=== PATIENT | female | born 1980 | race Caucasian/White ===

== ENCOUNTER 2017-06-06 18:23 | Inpatient (IN) | payer BC, MEDICAID ==
[2017-06-06] MEDS ORDERED: Penicillin G Potassium 5 MILLUNITS in Sodium Chloride 0.9% 100 ML IV ONE (19:00)
[2017-06-06] MEDS ORDERED: Lactated Ringers 500 ML IV ONE (19:25)
[2017-06-06] MEDS ORDERED: Lidocaine 1% 30 ML SDV INJECT PRN (19:25)
[2017-06-06] MEDS ORDERED: Ondansetron 4 MG/2 ML SDV IV PRN (19:25)
[2017-06-06] MEDS ORDERED: fentaNYL 100 MCG/2 ML SDV IVPUSH PRN (19:25)
[2017-06-06] MEDS ORDERED: Methylergonovine 0.2 MG/1 ML Amp IM PRN (19:25)
[2017-06-06] MEDS ORDERED: Misoprostol 400 MCG (4 X 100 MCG TAB) RECTAL PRN (19:25)
[2017-06-06] MEDS ORDERED: Nalbuphine 20 MG/1 ML Amp IVPUSH PRN (19:25)
[2017-06-06] MEDS ORDERED: Acetaminophen 325 MG Tab PO PRN (19:25)
[2017-06-06] MEDS ORDERED: Sodium Chloride 0.9% 10 ML Syringe FLUSH PRN (19:25)
[2017-06-06] MEDS ORDERED: Carboprost Tromethamine 250 MCG/1 ML Amp IM PRN (19:25)
[2017-06-06] MEDS ORDERED: Oxytocin/Normal Saline 30 UNIT/500 ML BAG IV SCH (19:30)
--- NOTE | 2017-06-06 19:38 | PCM.LDHP ---
L&D History of Present Illness - General Date of Service: 06/06/17 Admit Problem/Dx: Patient Status Order with Admit Dx/Problem 06/06/17 19:25 Patient Status [ADT] Routine Admission Diagnosis/Problem Admission Diagnosis/Problem Source of Information: Patient History Limitations: Reports: No Limitations - History of Present Illness Introduction:: 36-year-old at 37w6d presents with gross rupture of membranes at 1630. She states the fluid appeared clear. No bleeding. Baby has been active. She is not feeling any contractions. Her last delivery took approximately 4 hours. She does have chronic hypertension which is being treated with Aldomet 500 mg BID and labetalol 100 mg daily. She is also hypothyroid and taking levothyroxine 100 mcg daily. - Related Data Allergies/Adverse Reactions: Allergies Allergy/AdvReac Type Severity Reaction Status Date / Time latex Allergy Itching Verified 06/06/17 19:00 Home Medications: Home Meds Labetalol HCl [Labetalol] 100 mg PO DAILY 11/05/15 [History] Levothyroxine [Synthroid] 100 mcg PO ACBREAKFAST 11/05/15 [History] Methyldopa 500 mg PO BID 11/05/15 [History] Pnv with Ca,No.72/Iron/Fa [ Plus Multivitamin Tab] 1 tab PO DAILY [History] Past Medical History HEENT History: Reports: None Cardiovascular History: Reports: Hypertension, Other (See Below) Other Cardiovascular History: gestational and chronic Respiratory History: Reports: Asthma Gastrointestinal History: Reports: GERD Genitourinary History: Reports: None 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: Musculoskeletal History: Reports: None Neurological History: Reports: None Psychiatric History: Reports: Anxiety, Depression Endocrine/Metabolic History: Reports: Hypothyroidism Hematologic History: Reports: None Immunologic History: Reports: None Oncologic (Cancer) History: Reports: None Dermatologic History: Reports: None - Infectious Disease History Infectious Disease History: Reports: None - Past Surgical History Head Surgeries/Procedures: Reports: None Social & Family History - Family History Family Medical History: Noncontributory - Tobacco Use Smoking Status *Q: Never Smoker Second Hand Smoke Exposure: No - Caffeine Use Caffeine Use: Reports: Soda - Recreational Drug Use Recreational Drug Use: No H&P Review of Systems - Review of Systems: Review Of Systems: See Below General: Reports: No Symptoms HEENT: Reports: No Symptoms Pulmonary: Reports: No Symptoms Cardiovascular: Reports: No Symptoms Gastrointestinal: Reports: No Symptoms Genitourinary: Reports: No Symptoms Musculoskeletal: Reports: No Symptoms Skin: Reports: No Symptoms Psychiatric: Reports: No Symptoms Neurological: Reports: No Symptoms Hematologic/Lymphatic: Reports: No Symptoms L&D Exam - Exam Exam: See Below - Vital Signs Weight: 134.717 kg - OB Specific Contraction Duration (sec): 20 Contraction Frequency (min): 7-10 Contraction Intensity: Mild Movement: Active Heart Tones: Present Heart Tones per Min: 135 Heart Rate (FHR) Variability: Absent; Amplitude Undetectable Presentation: Vertex - Villarreal Score Villarreal Score Cervix Position: Posterior Villarreal Score Consistency: Soft Villarreal Score Effacement: 51-70% Villarreal Score Dilation: 1-2 cm Villarreal Score 's Station: -3 Villarreal Score Total: 5 - Exam General: Alert, Oriented HEENT: Conjunctiva Clear, Mucosa Moist & [place] Lungs: Clear to Auscultation, Normal Respiratory Effort Cardiovascular: Regular Rate, Regular Rhythm. No: Systolic Murmur, Diastolic Murmur Extremities: Pedal Edema (Trace bilaterally) Skin: Warm, Dry, Intact - Patient Data Lab Results Last 24 hrs: Laboratory Results - last 24 hr 06/06/17 Range/Units 18:48 WBC 10.3 H (5.0-10.0) 10^3/uL RBC 4.17 L (4.2-5.4) 10^6/uL Hgb 12.1 D (12.0-16.0) g/dL Hct 36.9 L (37.0-47.0) % MCV 88.5 (80-100) fL MCH 29.0 (27.0-34.0) pg MCHC 32.8 L (33.0-35.0) g/dL Plt Count 252 (150-450) 10^3/uL Result Diagrams: 06/06/17 18:48 - Problem List (1) SROM (spontaneous rupture of membranes) SNOMED Code(s): 069417789 ICD Code: FNS9187 - Status: Acute Current Visit: Yes (2) Chronic hypertension SNOMED Code(s): 80955255 ICD Code: I10 - ESSENTIAL (PRIMARY) HYPERTENSION Status: Acute Current Visit: Yes (3) Hypothyroid SNOMED Code(s): 47698276 ICD Code: E03.9 - HYPOTHYROIDISM, UNSPECIFIED Status: Acute Current Visit : Yes (4) Positive GBS test SNOMED Code(s): 1989754738994 ICD Code: B95.1 - STREPTOCOCCUS, GROUP B, CAUSING DISEASES CLASSD ELSWHR Status: Acute Current Visit: Yes (5) Anemia affecting SNOMED Code(s): 13153039 ICD Code: O99.019 - ANEMIA COMPLICATING , UNSPECIFIED TRIMESTER Status: Acute Current Visit: Yes Problem List Initiated/Reviewed/Updated: Yes Orders Last 24hrs: Active Orders 24 hr Category Date Time Status Patient Status [ADT] Routine ADT 06/06/17 19:25 Ordered Communication Order [RC] ASDIRECTED Care 06/06/17 19:25 Ordered Heart Tones [RC] PER UNIT ROUTINE Care 06/06/17 19:25 Ordered Notify Provider Vital Signs OB [RC] ASDIRECTED Care 06/06/17 19:25 Ordered Notify Provider [RC] PRN Care 06/06/17 19:25 Ordered Pump Management, Intrathecal [RC] ASDIRECTED Care 06/06/17 19:25 Ordered Up ad Nikki [RC] ASDIRECTED Care 06/06/17 19:25 Ordered Vital Signs [RC] PER UNIT ROUTINE Care 06/06/17 19:25 Ordered Clear Liquid Diet [DIET] Diet 06/06/17 Breakfast Ordered Acetaminophen [Tylenol] Med 06/06/17 19:25 Ordered 650 mg PO Q4H PRN Carboprost Tromethamine [Hemabate DS] Med 06/06/17 19:25 Ordered 250 mcg IM ASDIRECTED PRN Lactated Ringers @ 125 MLS/HR(1000ml) Med 06/06/17 19:30 Ordered Lactated Ringers [Ringers, Lactated] 1,000 ml IV ASDIRECTED Lactated Ringers [Ringers, Lactated] 500 ml Med 06/06/17 19:25 Ordered IV .BOLUS Lidocaine 1% [Xylocaine-MPF 1%] Med 06/06/17 19:25 Ordered 10 ml INJECT ASDIRECTED PRN Methylergonovine [Methergine] Med 06/06/17 19:25 Ordered 0.2 mg IM ASDIRECTED PRN Misoprostol [Cytotec] Med 06/06/17 19:25 Ordered 800 mcg RECTAL ASDIRECTED PRN Nalbuphine [Nubain] Med 06/06/17 19:25 Ordered 10 mg IVPUSH Q3H PRN Ondansetron [Zofran] Med 06/06/17 19:25 Ordered 4 mg IV Q4H PRN Oxytocin 30 Units in NS @ 2 MUNITS/MIN(500ml) Med 06/06/17 19:30 Ordered Oxytocin/Normal Saline [Pitocin in NS 30 UNIT/500 ML] 30 unit in 500 ml IV TITRATE Penicillin G Potassium [Pfizerpen] 2.5 millunits Med 06/06/17 19:30 Ordered Sodium Chloride 0.9% [Normal Saline] 100 ml IV Q4H Sodium Chloride 0.9% [Saline Flush] Med 06/06/17 19:25 Ordered 10 ml FLUSH ASDIRECTED PRN fentaNYL [Sublimaze] Med 06/06/17 19:25 Ordered 50 mcg IVPUSH Q1H PRN Saline Lock Insert [OM.PC] Routine Oth 06/06/17 19:25 Ordered Resuscitation Status Routine Resus Stat 06/06/17 19:25 Ordered Medication Orders Acetaminophen (Tylenol) 650 mg PO Q4H PRN PRN Reason: Pain (Mild 1-3) and fever Carboprost Tromethamine (Hemabate Ds) 250 mcg IM ASDIRECTED PRN PRN Reason: HEMORRHAGE Fentanyl (Sublimaze) 50 mcg IVPUSH Q1H PRN PRN Reason: Pain (moderate 4-6) Lactated Ringer's (Ringers, Lactated) 500 mls @ 999 mls/hr IV .BOLUS ONE Stop: 06/06/17 19:55 Lactated Ringer's (Ringers, Lactated) 1,000 mls @ 125 mls/hr IV ASDIRECTED MEGAN Oxytocin/Sodium Chloride (Pitocin In Ns 30 Unit/500 Ml) 30 unit in 500 mls @ 2 mls/hr IV TITRATE MEGAN; 2 MUNITS/MIN PRN Reason: Protocol Penicillin G Potassium 2.5 (millunits/ Sodium Chloride) 100 mls @ 200 mls/hr IV Q4H MEGAN Lidocaine HCl (Xylocaine-Mpf 1%) 10 ml INJECT ASDIRECTED PRN PRN Reason: Perineal Repair Methylergonovine Maleate (Methergine) 0.2 mg IM ASDIRECTED PRN PRN Reason: Hemorrhage Misoprostol (Cytotec) 800 mcg RECTAL ASDIRECTED PRN PRN Reason: Hemorrhage Nalbuphine HCl (Nubain) 10 mg IVPUSH Q3H PRN PRN Reason: Pain (moderate 4-6) Ondansetron HCl (Zofran) 4 mg IV Q4H PRN PRN Reason: Nausea/Vomiting Sodium Chloride (Saline Flush) 10 ml FLUSH ASDIRECTED PRN PRN Reason: Keep Vein Open Assessment/Plan Comment:: 36-year-old at 37w6d with SROM 1. Admit to L&D 2. Initiate PCN for GBS+ status 3. Given history of rapid delivery, will wait until 2 hours after PCN then start pitocin 4. Continue home medications for hypertension and hypothyroidism 5. Patient does desire intrathecal 6. Expectant management. Anticipate Aurelia Bass MD
[2017-06-06] MEDS: Penicillin G Potassium 2.5 MILLUNITS in Sodium Chloride 0.9% 100 ML IV SCH (23:21)
[2017-06-07] MEDS: Lactated Ringers 1,000 ML IV SCH ×3 (00:01→04:58)
[2017-06-07] MEDS: Penicillin G Potassium 2.5 MILLUNITS in Sodium Chloride 0.9% 100 ML IV SCH ×2 (02:41→08:09)
[2017-06-07] MEDS ORDERED: Labetalol 20 MG/4 ML Syringe IVPUSH ONE (02:55)
[2017-06-07] MEDS ORDERED: fentaNYL 100 MCG/2 ML SDV ONE (04:28)
--- NOTE | 2017-06-07 05:21 | PCM.PRNOTE ---
- Free Text/Narrative Note: Requested to provide analgesia to full term patient in severe pain. Upon entering the room, patient is lying on right side complaining of severe abdominal pain and discomfort. Procedure was discussed with patient including adverse outcomes and expectations. Pt consented to analgesia, SAB/IT. Pt placed into a sitting position. Landmarks for SAB/IT were identified and marked. Back was prepped with betadine x3. A sterile, transparent, fenestrated drape was applied. Excess betadine was removed. Using 3 mL of a 1% lidocaine solution, a skin wheel was placed at the L3/L4 interspace. A 24 ga (4 inch) Pencan spinal needle was inserted until positive for CSF. Negative for heme or paresthesias. Injected fentanyl 20 mcg, sufentanil 10 mcg, and 11.25 mg of a 0.75% bupivacaine solution with an epi wash. Pt was placed left lateral position for approximately 20 minutes. There were zero complications or adverse outcomes. Will continue to monitor.
[2017-06-07] MEDS ORDERED: Oxytocin/Normal Saline 30 UNIT/500 ML BAG IV SCH (06:20)
[2017-06-07] MEDS ORDERED: Benzocaine/Menthol 20%-0.5% Spray 56 GM Canister TOP PRN (06:45)
[2017-06-07] MEDS ORDERED: Oxytocin 10 Units/1 ML SDV IM PRN (06:45)
[2017-06-07] MEDS ORDERED: Simethicone 80 MG Tab.Chew PO PRN (06:45)
[2017-06-07] MEDS ORDERED: Sodium Chloride 0.9% 10 ML Syringe FLUSH PRN (06:45)
--- NOTE | 2017-06-07 06:47 | PCM.DEL ---
L & D Note - General Info Date of Service: 06/07/17 Mother's Due Date: 06/21/17 - Delivery Note Labor: Spontaneous, Augmented by Oxytocin Delivery Outcome: Livebirth Infant Delivery Method: Spontaneous Vaginal Delivery-Single Infant Delivery Mode: Vacuum Extraction Presentation: Vertex Nuchal Cord: Present, Reduced (after delivery) Anesthesia Type: Intrathecal Amniotic Fluid Description: Clear Episiotomy Type: None Laceration: 2nd Degree, Vaginal Suture type: Vicryl Suture size: 3-0 Placenta: Intact, Spontaneous Estimated Blood Loss: 175 Resuscitation Needed: Yes [place]: Bulb Syringe, Stimulated, Warmed, [place] Used, Warmer Used Score 1 min: 8 Score 5 min: 9 Delivery Comments (Free Text/Narrative):: 36-year-old now presented to L&D with SROM at 37w6d on 06/06/17. Patient was noted to be grossly ruptured. Penicillin was started for GBS positive status. Due to several patients arriving to the floor the same time, Pitocin was started approximately 2200. Patient progressed well with the use of Pitocin. She received an intrathecal around 4:30 AM. Patient progressed to complete dilation at approximately 6 AM. Starting at 5:30 AM, heart tones were noted to be intermittently and the 60s to 90s. These did recover. Patient did push for 1 contraction and moved to the head and to +2 station. heart tones were noted to be persistently in the 80s. Therefore a soft couple mighty Vac was applied to the head. Patient pushed well 5 times in the head was delivered. The vacuum was removed and the remainder of the body was delivered. A tight nuchal cord was noted and was reduced after delivery of . The mouth and nose were suctioned at the perineum as patient did have some significant gurgling. He was taken to the warmer for a few minutes for resuscitation. The placenta delivered at few minutes later and was noted to be intact. Patient did have a small second-degree vaginal laceration that was repaired in the usual fashion. Afterwards, hemostasis was noted to be appropriate. The uterus was firm. There were no immediate complications, and the patient tolerated the procedure well. Aurelia Bass MD Vacuum Extractor Progress Note - Alternative Labor Strategies Considered Alternative Labor Strategies Considered:: Reports: Yes Strategies Considered:: Reports: Contraction Intensity Adequate, Empty Bladder, Rest Indications Considered:: Reports: Yes Indications:: Reports: Suspicion of Immediate or Potential Compromise - Patient Prepared Patient Prepared:: Reports: Yes Informed Consent:: Reports: Yes Risks: Reports: Yes Risks Include:: Reports: Shoulder Dystocia, Maternal Injury Anesthesia/Analgesia Adequate:: Reports: Yes - Probability of Success High Probability of Success:: Reports: Yes Weight Estimated:: Reports: AGA Patient Diabetic:: Reports: No Pelvis Adequate:: Reports: Yes Position:: Vertex Asynclitic:: Reports: No Station:: 2+ - Application Time Type of Vacuum Used:: Reports: Cup: Duque type Vacuum Extraction: Successful - Exit Strategy Exit strategy available:: Reports: Yes - Patient Data Vitals - Most Recent: Last Vital Signs Temp 36.6 C 06/07/17 00:00 Pulse 51 L 06/07/17 03:30 Resp 16 06/06/17 18:53 BP 160/86 H 06/07/17 03:30 Pulse Ox Weight - Most Recent: 134.717 kg Lab Results Last 24 Hours: Laboratory Results - last 24 hr 06/06/17 06/07/17 06/07/17 Range/Units 18:48 03:00 03:00 WBC 10.3 H 10.4 H (5.0-10.0) 10^3/uL RBC 4.17 L 3.98 L (4.2-5.4) 10^6/uL Hgb 12.1 D 11.5 L (12.0-16.0) g/dL Hct 36.9 L 35.5 L (37.0-47.0) % MCV 88.5 89.2 (80-100) fL MCH 29.0 28.9 (27.0-34.0) pg MCHC 32.8 L 32.4 L (33.0-35.0) g/dL Plt Count 252 235 (150-450) 10^3/uL Neut % (Auto) 73.8 (42.2-75.2) % Lymph % (Auto) 17.6 L (20.5-50.1) % [place] % (Auto) 6.8 (2-8) % Eos % (Auto) 1.6 (1.0-3.0) % Baso % (Auto) 0.2 (0.0-1.0) % BUN 9 (7-18) mg/dL Uric Acid 4.5 (2.6-7.2) mg/dL AST 19 (10-42) IU/L ALT 12 (10-60) IU/L Lactate Dehydrogenase 112 (91-180) IU/L Med Orders - Current: Current Medications Acetaminophen (Tylenol) 650 mg PO Q4H PRN PRN Reason: Pain (Mild 1-3) and fever Carboprost Tromethamine (Hemabate Ds) 250 mcg IM ASDIRECTED PRN PRN Reason: HEMORRHAGE Penicillin G Potassium 2.5 (millunits/ Sodium Chloride) 100 mls @ 200 mls/hr IV Q4H MEGAN Last Admin: 06/07/17 02:41 Dose: 200 mls/hr Methylergonovine Maleate (Methergine) 0.2 mg IM ASDIRECTED PRN PRN Reason: Hemorrhage Misoprostol (Cytotec) 800 mcg RECTAL ASDIRECTED PRN PRN Reason: Hemorrhage Sodium Chloride (Saline Flush) 10 ml FLUSH ASDIRECTED PRN PRN Reason: Keep Vein Open Discontinued Medications Fentanyl (Sublimaze) 50 mcg IVPUSH Q1H PRN PRN Reason: Pain (moderate 4-6) Fentanyl (Sublimaze) Confirm Administered Dose 100 mcg .ROUTE .STK-MED ONE Stop: 06/07/17 04:29 Last Admin: 06/07/17 05:34 Dose: Not Given Penicillin G Potassium 5 (millunits/ Sodium Chloride) 100 mls @ 200 mls/hr IV ONETIME ONE Stop: 06/06/17 19:29 Last Admin: 06/06/17 19:34 Dose: 200 mls/hr Lactated Ringer's (Ringers, Lactated) 500 mls @ 999 mls/hr IV .BOLUS ONE Stop: 06/06/17 19:55 Last Admin: 06/06/17 19:33 Dose: 999 mls/hr Lactated Ringer's (Ringers, Lactated) 1,000 mls @ 125 mls/hr IV ASDIRECTED MEGAN Last Admin: 06/07/17 04:58 Dose: 125 mls/hr Oxytocin/Sodium Chloride (Pitocin In Ns 30 Unit/500 Ml) 30 unit in 500 mls @ 2 mls/hr IV TITRATE MEGAN; 2 MUNITS/MIN PRN Reason: Protocol Last Titration: 06/07/17 03:15 Dose: 10 munits/min, 10 mls/hr Labetalol HCl (Normodyne) 20 mg IVPUSH NOW ONE PRN Reason: Protocol Stop: 06/07/17 02:56 Last Admin: 06/07/17 03:17 Dose: 20 mg Lidocaine HCl (Xylocaine-Mpf 1%) 10 ml INJECT ASDIRECTED PRN PRN Reason: Perineal Repair Nalbuphine HCl (Nubain) 10 mg IVPUSH Q3H PRN PRN Reason: Pain (moderate 4-6) Last Admin: 06/07/17 02:26 Dose: 10 mg Ondansetron HCl (Zofran) 4 mg IV Q4H PRN PRN Reason: Nausea/Vomiting Last Admin: 06/07/17 04:14 Dose: 4 mg Sufentanil Citrate (Sufenta) Confirm Administered Dose 50 mcg .ROUTE .STK-MED ONE Stop: 06/07/17 04:29 Last Admin: 06/07/17 05:34 Dose: Not Given - Problem List & Annotations (1) SROM (spontaneous rupture of membranes) SNOMED Code(s): 196612080 Code(s): HQY7488 - Status: Acute Current Visit: Yes (2) Chronic hypertension SNOMED Code(s): 20080435 Code(s): I10 - ESSENTIAL (PRIMARY) HYPERTENSION Status: Acute Current Visit: Yes (3) Hypothyroid SNOMED Code(s): 95800946 Code(s): E03.9 - HYPOTHYROIDISM, UNSPECIFIED Status: Acute Current Visit : Yes (4) Positive GBS test SNOMED Code(s): 4738271287414 Code(s): B95.1 - STREPTOCOCCUS, GROUP B, CAUSING DISEASES CLASSD ELSR Status: Acute Current Visit: Yes (5) Anemia affecting SNOMED Code(s): 13373639 Code(s): O99.019 - ANEMIA COMPLICATING , UNSPECIFIED TRIMESTER Status: Acute Current Visit: Yes (6) Status post vacuum-assisted vaginal delivery SNOMED Code(s): 325462794 Code(s): Z87.42 - PERSONAL HISTORY OF OTH DISEASES OF THE FEMALE GENITAL TRACT Status: Acute Current Visit: Yes (7) Obstetric vaginal laceration SNOMED Code(s): 235769074 Code(s): O71.4 - OBSTETRIC HIGH VAGINAL LACERATION ALONE Status: Acute Current Visit: Yes - Problem List Review Problem List Initiated/Reviewed/Updated: Yes - My Orders Last 24 Hours: My Active Orders 06/06/17 18:30 Amniotic Fluid POC Testing [POC Labs] [RC] ASDIRECTED 06/06/17 19:25 Patient Status [ADT] Routine Pump Management, Intrathecal [RC] ASDIRECTED Acetaminophen [Tylenol] 650 mg PO Q4H PRN Carboprost Tromethamine [Hemabate DS] 250 mcg IM ASDIRECTED PRN Methylergonovine [Methergine] 0.2 mg IM ASDIRECTED PRN Misoprostol [Cytotec] 800 mcg RECTAL ASDIRECTED PRN Sodium Chloride 0.9% [Saline Flush] 10 ml FLUSH ASDIRECTED PRN Saline Lock Insert [OM.PC] Routine Resuscitation Status Routine 06/06/17 22:00 Penicillin G Potassium [Pfizerpen] 2.5 millunits Sodium Chloride 0.9% [Normal Saline] 100 ml IV Q4H 06/07/17 02:55 PIH Panel [OM.PC] Routine 06/07/17 06:45 Notify Provider Vital Signs OB [RC] ASDIRECTED Up ad Nikki [RC] ASDIRECTED Vital Signs [RC] PFP Consult to College Sports Coach [CONS] Routine Benzocaine/Menthol [Dermoplast Pain Relief [place]] See Dose Instructions TOP Q4H PRN Docusate Sodium [Colace] 100 mg PO BID PRN Ibuprofen [Motrin] 800 mg PO Q8H PRN Oxytocin [Pitocin] 10 unit IM ONETIME PRN Simethicone 80 mg PO Q4H PRN Sodium Chloride 0.9% [Saline Flush] 10 ml FLUSH ASDIRECTED PRN Assess Lochia [WOMSER] Per Unit Routine Assess Uterine Involution [WOMSER] Per Unit Routine Breast Pump [WOMSER] Per Unit Routine Ice Therapy [OM.PC] Per Unit Routine Perineal Care [OM.PC] Per Unit Routine Saline Lock Insert [OM.PC] Urgent Sitz Bath [OM.PC] Per Unit Routine 06/07/17 09:00 Vit with Ca/FA/Iron [ Plus Iron] 1 each PO DAILY - Assessment Assessment:: 26-year-old, now , status post vacuum-assisted vaginal delivery at 38w0d - Plan Plan:: 1. Initiate routine cares 2. Patient does plan to breastfeed. consultation placed 3. Continue home medications 4. Anticipate discharge 06/09/17. Dr. Mares to resume care tomorrow. Aurelia Bass MD
[2017-06-07] MEDS: Prenatal Multivitamin with Calcium/Folic Acid/Iron Tab PO SCH (08:56)
[2017-06-07] MEDS: Ibuprofen 800 MG Tab PO PRN ×2 (08:56→17:18)
[2017-06-07] MEDS: Docusate Sodium 100 MG Cap PO PRN (08:57)
[2017-06-08] MEDS: Ibuprofen 800 MG Tab PO PRN ×3 (01:01→21:31)
[2017-06-08] MEDS: Prenatal Multivitamin with Calcium/Folic Acid/Iron Tab PO SCH (09:18)
[2017-06-08] MEDS: Docusate Sodium 100 MG Cap PO PRN ×2 (09:18→21:31)
[2017-06-08] MEDS ORDERED: fentaNYL 100 MCG/2 ML SDV ITHECAL ONE (13:30)
--- NOTE | 2017-06-08 13:35 | PCM.SN ---
- Free Text/Narrative Note: DOS: 06-08-17 Progress note, PPD #1 Diann delivered 06-07-17 by VAVD, viable 7lb 15oz male infant without complications. APGARs 8 & 9 going well and search consultant has seen her already today. no significant cramping. flow decreasing. afebrile with stable VS. see graphics for details. no concerns. exam unremarkable. fundus firm, nontender will plan on discharge tomorrow 06-09-17. Please see nursing notes for further details. All questions answered for her today. [facility]
[2017-06-09] MEDS: Prenatal Multivitamin with Calcium/Folic Acid/Iron Tab PO SCH (08:53)
[2017-06-09] MEDS: Docusate Sodium 100 MG Cap PO PRN (08:54)
--- NOTE | 2017-06-09 11:04 | PCM.DCSUM1 ---
Discharge Summary - Hospital Course Free Text/Narrative:: 36yo WF G2 now P2 delivered 7lb 15oz male by VAVD per Dr. Bass @ 0620 06-07-17 APGARs 8 & 9 nursing dong well HTN hypothyroid +GBS HPI Initial Comments: see EPIC episode and admission H&P/Shelia Brief History: admitted with SROM, hx HTN, r/o pre-E--see admit H&P - Discharge Data Discharge Date: 06/09/17 Discharge Disposition: Home, Self-Care 01 Condition: Good - Discharge Diagnosis/Problem(s) (1) Mother currently breast-feeding SNOMED Code(s): 926519036 ICD Code: [id number] - Status: Acute Current Visit: Yes (2) Anemia affecting SNOMED Code(s): 06906939 ICD Code: O99.019 - ANEMIA COMPLICATING , UNSPECIFIED TRIMESTER Status: Acute Current Visit: Yes (3) Chronic hypertension SNOMED Code(s): 66902629 ICD Code: I10 - ESSENTIAL (PRIMARY) HYPERTENSION Status: Acute Current Visit: Yes (4) Hypothyroid SNOMED Code(s): 66732236 ICD Code: E03.9 - HYPOTHYROIDISM, UNSPECIFIED Status: Acute Current Visit : Yes (5) Obstetric vaginal laceration SNOMED Code(s): 529597007 ICD Code: O71.4 - OBSTETRIC HIGH VAGINAL LACERATION ALONE Status: Acute Current Visit: Yes (6) Positive GBS test SNOMED Code(s): 7240933412128 ICD Code: B95.1 - STREPTOCOCCUS, GROUP B, CAUSING DISEASES CLASSD [id number] Status: Acute Current Visit: Yes (7) SROM (spontaneous rupture of membranes) SNOMED Code(s): 274235740 ICD Code: WLQ0877 - Status: Acute Current Visit: Yes (8) Status post vacuum-assisted vaginal delivery SNOMED Code(s): 213779760 ICD Code: Z87.42 - PERSONAL HISTORY OF OTH DISEASES OF THE FEMALE GENITAL TRACT Status: Acute Current Visit: Yes (9) Vaginal delivery SNOMED Code(s): 995575797 ICD Code: O80 - ENCOUNTER FOR FULL-TERM UNCOMPLICATED DELIVERY Status: Acute Current Visit: No - Patient Summary/Data Operative Procedure(s) Performed: VAVD, vaginal laceration repeair Complications: none Consults: Consultations 06/07/17 06:45 Consult to Automatic I Threading Machine Feeder [CONS] Routine Labs Pending at D/C: none Recommended Follow-up Testing/Procedures: thyroid testing and glucose at 6 weeks Hospital Course: uneventful - Patient Instructions Diet: Usual Diet as Tolerated Activity: As Tolerated Driving: Do Not Drive (may drive as tolerated) Showering/Bathing: May Shower Notify Provider of: Fever, Increased Pain, Swelling and Redness - Discharge Plan Home Medications: Home Meds Labetalol HCl [Labetalol] 100 mg PO DAILY 11/05/15 [History] Levothyroxine [Synthroid] 100 mcg PO ACBREAKFAST 11/05/15 [History] Methyldopa 500 mg PO BID 11/05/15 [History] Pnv with Ca,No.72/Iron/Fa [ Plus Multivitamin Tab] 1 tab PO DAILY [History] Patient Handouts: Home Care Instructions for Mom, Care of a Perineal Tear - Discharge Summary/Plan Comment DC Time >30 min.: No Discharge Summary/Plan Comment: follow up at 6 weeks, and next week for BP check. hmb - Patient Data Vitals - Most Recent: Last Vital Signs Temp 97.8 F 06/08/17 20:00 Pulse 60 06/08/17 20:00 Resp 16 06/08/17 20:00 BP 139/66 06/08/17 20:00 Pulse Ox 98 06/08/17 09:00 Weight - Most Recent: 297 lb Med Orders - Current: Current Medications Acetaminophen (Tylenol) 650 mg PO Q4H PRN PRN Reason: Pain (Mild 1-3) and fever Benzocaine/Menthol (Dermoplast Pain Relief [place]) 0 gm TOP Q4H PRN PRN Reason: Perineal comfort measures Last Admin: 06/07/17 08:56 Dose: 1 spray Carboprost Tromethamine (Hemabate Ds) 250 mcg IM ASDIRECTED PRN PRN Reason: HEMORRHAGE Docusate Sodium (Colace) 100 mg PO BID PRN PRN Reason: Constipation Last Admin: 06/09/17 08:54 Dose: 100 mg Oxytocin/Sodium Chloride (Pitocin In Ns 30 Unit/500 Ml) 30 unit in 500 mls @ 500 mls/hr IV TITRATE MEGAN; 500 MUNITS/MIN PRN Reason: Protocol Last Titration: 06/07/17 09:45 Dose: 0 munits/min, 0 mls/hr Ibuprofen (Motrin) 800 mg PO Q8H PRN PRN Reason: Mild Pain or Fever Last Admin: 06/08/17 21:31 Dose: 800 mg Methylergonovine Maleate (Methergine) 0.2 mg IM ASDIRECTED PRN PRN Reason: Hemorrhage Misoprostol (Cytotec) 800 mcg RECTAL ASDIRECTED PRN PRN Reason: Hemorrhage Oxytocin (Pitocin) 10 unit IM ONETIME PRN PRN Reason: Bleeding Prenat Multivit/[place]/Iron/Folic Ac ( Plus Iron) 1 each PO DAILY MEGAN Last Admin: 06/09/17 08:53 Dose: 1 each Simethicone (Simethicone) 80 mg PO Q4H PRN PRN Reason: Gas Last Admin: 06/07/17 08:57 Dose: 80 mg Sodium Chloride (Saline Flush) 10 ml FLUSH ASDIRECTED PRN PRN Reason: Keep Vein Open Sodium Chloride (Saline Flush) 10 ml FLUSH ASDIRECTED PRN PRN Reason: Keep Vein Open Last Admin: 06/07/17 06:25 Dose: 10 ml Discontinued Medications Fentanyl (Sublimaze) 50 mcg IVPUSH Q1H PRN PRN Reason: Pain (moderate 4-6) Fentanyl (Sublimaze) Confirm Administered Dose 100 mcg .ROUTE .STK-MED ONE Stop: 06/07/17 04:29 Last Admin: 06/07/17 05:34 Dose: Not Given Fentanyl (Sublimaze) 20 mcg ITHECAL .STK-MED ONE Stop: 06/08/17 13:31 Penicillin G Potassium 5 (millunits/ Sodium Chloride) 100 mls @ 200 mls/hr IV ONETIME ONE Stop: 06/06/17 19:29 Last Admin: 06/06/17 19:34 Dose: 200 mls/hr Lactated Ringer's (Ringers, Lactated) 500 mls @ 999 mls/hr IV .BOLUS ONE Stop: 06/06/17 19:55 Last Admin: 06/06/17 19:33 Dose: 999 mls/hr Lactated Ringer's (Ringers, Lactated) 1,000 mls @ 125 mls/hr IV ASDIRECTED MEGAN Last Admin: 06/07/17 04:58 Dose: 125 mls/hr Oxytocin/Sodium Chloride (Pitocin In Ns 30 Unit/500 Ml) 30 unit in 500 mls @ 2 mls/hr IV TITRATE MEGAN; 2 MUNITS/MIN PRN Reason: Protocol Last Titration: 06/07/17 06:20 Dose: 0 munits/min, 0 mls/hr Penicillin G Potassium 2.5 (millunits/ Sodium Chloride) 100 mls @ 200 mls/hr IV Q4H MEGAN Last Admin: 06/07/17 08:09 Dose: Not Given Labetalol HCl (Normodyne) 20 mg IVPUSH NOW ONE PRN Reason: Protocol Stop: 06/07/17 02:56 Last Admin: 06/07/17 03:17 Dose: 20 mg Lidocaine HCl (Xylocaine-Mpf 1%) 10 ml INJECT ASDIRECTED PRN PRN Reason: Perineal Repair Nalbuphine HCl (Nubain) 10 mg IVPUSH Q3H PRN PRN Reason: Pain (moderate 4-6) Last Admin: 06/07/17 02:26 Dose: 10 mg Ondansetron HCl (Zofran) 4 mg IV Q4H PRN PRN Reason: Nausea/Vomiting Last Admin: 06/07/17 04:14 Dose: 4 mg Sufentanil Citrate (Sufenta) Confirm Administered Dose 50 mcg .ROUTE .STK-MED ONE Stop: 06/07/17 04:29 Last Admin: 06/07/17 05:34 Dose: Not Given Sufentanil Citrate (Sufenta) 10 mcg ITHECAL .STK-MED ONE Stop: 06/08/17 13:31 *Q Meaningful Use (DIS) - VTE *Q VTE Criteria *Q: - Stroke *Q Stroke Criteria *Q: - AMI *Q AMI Criteria *Q:
[2017-06-09 13:58] VITALS: BP 150/81
== END 2017-06-09 12:30 | disposition home or self-care (01) | DRG 560 ==
LOC: DL.OBCHECK 18:23 → DL.OB 18:35 → OBSVTOIN 06-07 06:20
PROVIDERS: ADMIT Family Medicine; ATTEND Family Medicine
PROC: 10D07Z6 Extraction of Products of Conception, Vacuum, Via Natural or Artificial Opening (ICD-10-PCS; principal; 2017-06-07)
PROC: 0KQM0ZZ Repair Perineum Muscle, Open Approach (ICD-10-PCS; 2017-06-07)
PROC: 00HU33Z Insertion of Infusion Device into Spinal Canal, Percutaneous Approach (ICD-10-PCS; 2017-06-07)
PROC: 3E0R3BZ Introduction of Anesthetic Agent into Spinal Canal, Percutaneous Approach (ICD-10-PCS; 2017-06-07)
DX: O42.02 Full-term premature rupture of membranes, onset of labor within 24 hours of rupture (principal); Z3A.38 38 weeks gestation of pregnancy; Z37.0 Single live birth; O10.92 Unspecified pre-existing hypertension complicating childbirth; Z91.040 Latex allergy status; O99.284 Endocrine, nutritional and metabolic diseases complicating childbirth; E03.9 Hypothyroidism, unspecified; O71.4 Obstetric high vaginal laceration alone; O69.81X0 Labor and delivery complicated by cord around neck, without compression, not applicable or unspecified; O99.02 Anemia complicating childbirth; O99.824 Streptococcus B carrier state complicating childbirth
CPT/HCPCS: 36415; 59300; 59409; 83615; 83986; 84450; 84460; 84520; 84550; 85025; 85027; A9270-GY; J2300; J2405; J2540; J2590; J3010; J7050; J7120

== ENCOUNTER 2018-09-21 20:26 | Emergency (ER) | payer BC ==
[2018-09-21 21:23] VITALS: BP 156/93
[2018-09-21 21:43] LABS: ANION GAP 15.3; CHLORIDE,CL 101 mmol/L (101-111); SODIUM,NA 136 mmol/L (135-145)
--- NOTE | 2018-09-21 23:06 | EDM.PDOC ---
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 9 weeks . Previous US in clinic,with intrauterine At time of US no problems reported. Light spotting yesterday, heavier flow tonight with few clots. Has not noted passage of tissue or product. Last pad change 2 hours prior with moderate bright red blood, no clots. No fever or chills, Flow heavier when standing up from sitting for period. Pelvic Pain Score (Numeric/FACES): 6 - Related Data Allergies Allergy/AdvReac Type Severity Reaction Status Date / Time latex Allergy Itching Verified 09/21/18 21:08 Home Meds: Home Meds Labetalol HCl [Labetalol] 100 mg PO DAILY 11/05/15 [History] Levothyroxine [Synthroid] 100 mcg PO ACBREAKFAST 11/05/15 [History] Pnv with Ca,No.72/Iron/Fa [ Plus Multivitamin Tab] 1 tab PO DAILY [History] Past Medical History HEENT History: Reports: None Cardiovascular History: Reports: Hypertension, Other (See Below) Other Cardiovascular History: gestational and chronic Respiratory History: Reports: Asthma Gastrointestinal History: Reports: GERD Genitourinary History: Reports: None 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: , 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 (See Below) Other MACHINE TECHNICIAN History: LEEP procedure Musculoskeletal History: Reports: None Neurological History: Reports: None Psychiatric History: Reports: Anxiety, Depression Endocrine/Metabolic History: Reports: Hypothyroidism Hematologic History: Reports: None Immunologic History: Reports: None Oncologic (Cancer) History: Reports: None Dermatologic History: Reports: None - Infectious Disease History Infectious Disease History: Reports: None - Past Surgical History Head Surgeries/Procedures: Reports: None HEENT Surgical History: Reports: Tonsillectomy Social & Family History - Family History Family Medical History: Noncontributory - Tobacco Use Smoking Status *Q: Never Smoker Second Hand Smoke Exposure: No - Caffeine Use Caffeine Use: Reports: Coffee, Soda - Recreational Drug Use Recreational Drug Use: No ED ROS GENERAL - Review of Systems Review Of Systems: ROS reveals no pertinent complaints other than HPI. ED EXAM - Physical Exam Exam: See Below Exam Limited By: No Limitations General Appearance: Alert, Anxious, Mild Distress Eye Exam: Bilateral Eye: EOMI Ears: Normal External Exam Nose: Normal Inspection Throat/Mouth: Normal Inspection, Normal Voice Head: Atraumatic, Normocephalic Neck: Normal Inspection Respiratory/Chest: No Respiratory Distress, Lungs Clear Cardiovascular: Regular Rate, Rhythm GI/Abdominal Exam: Normal Bowel Sounds, Soft, Tender (mild suprapubic) (Female) Exam: Normal External Exam, Vaginal Bleeding. No: Products of Conception, Tissue Present in Cervix/Vagina Back Exam: Full Range of Motion Extremities: Normal Range of Motion Neurological: Alert, Oriented, Normal Cognition Psychiatric: Anxious, Tearful Skin Exam: Warm, Dry, Intact, Normal Color Course - Vital Signs Last Recorded V/S: Last Vital Signs Temp 98.1 F 09/21/18 21:10 Pulse 85 09/21/18 21:10 Resp 18 09/21/18 21:10 BP 156/93 H 09/21/18 21:10 Pulse Ox 98 09/21/18 21:10 - Orders/Labs/Meds Labs: Laboratory Tests 09/21/18 09/21/18 09/21/18 Range/Units 21:00 21:20 21:20 WBC 9.3 (5.0-10.0) 10^3/uL RBC 5.01 (4.2-5.4) 10^6/uL Hgb 13.8 D (12.0-16.0) g/dL Hct 43.2 (37.0-47.0) % MCV 86.2 D (80-100) fL MCH 27.5 (27.0-34.0) pg MCHC 31.9 L (33.0-35.0) g/dL Plt Count 285 (150-450) 10^3/uL Sodium 136 (135-145) mmol/L Potassium 4.3 (3.6-5.0) mmol/L Chloride 101 (101-111) mmol/L Carbon Dioxide 24.0 (21.0-31.0) mmol/L Anion Gap 15.3 BUN 10 (7-18) mg/dL Creatinine 0.8 (0.6-1.3) mg/dL Est Cr Clr Drug Dosing 86.54 mL/min Estimated GFR (MDRD) > 60 BUN/Creatinine Ratio 12.50 Glucose 103 (74-105) mg/dL Calcium 9.4 (8.4-10.2) mg/dl Total Bilirubin 0.5 (0.2-1.0) mg/dL AST 22 (10-42) IU/L ALT 21 (10-60) IU/L Alkaline Phosphatase 64 (42-121) IU/L Total Protein 7.2 (6.7-8.2) g/dl Albumin 3.8 (3.2-5.5) g/dl Globulin 3.4 Albumin/Globulin Ratio 1.12 HCG, Qual Positive HCG, Quant (0-25) mIU/ml Beta HCG, Quant mIU/ml Urine Color (YELLOW) Urine Appearance (CLEAR) Urine pH (5.0-9.0) Ur Specific [place] (1.005-1.030) Urine Protein (NEGATIVE) Urine Glucose (UA) (NEGATIVE) Urine Ketones (NEGATIVE) Urine Occult Blood (NEGATIVE) Urine Nitrite (NEGATIVE) Urine Bilirubin (NEGATIVE) Urine Urobilinogen (0.2-1.0) mg/dL Ur Leukocyte Esterase (NEGATIVE) Urine RBC /HPF Urine WBC (0-5/HPF) /HPF Ur Epithelial Cells /HPF Urine Bacteria (0-FEW/HPF) /HPF Urine Opiates Screen Negative (NEGATIVE) Ur Oxycodone Screen Negative (NEGATIVE) Urine Methadone Screen Negative (NEGATIVE) Ur Barbiturates Screen Negative (NEGATIVE) U Tricyclic Antidepress Negative (NEGATIVE) Ur Phencyclidine Scrn Negative (NEGATIVE) Ur Amphetamine Screen Negative (NEGATIVE) U Methamphetamines Scrn Negative (NEGATIVE) Urine MDMA Screen Negative (NEGATIVE) U Benzodiazepines Scrn Negative (NEGATIVE) Urine Cocaine Screen Negative (NEGATIVE) U Marijuana (THC) Screen Negative (NEGATIVE) 09/21/18 09/21/18 Range/Units 21:20 21:20 WBC (5.0-10.0) 10^3/uL RBC (4.2-5.4) 10^6/uL Hgb (12.0-16.0) g/dL Hct (37.0-47.0) % MCV (80-100) fL MCH (27.0-34.0) pg MCHC (33.0-35.0) g/dL Plt Count (150-450) 10^3/uL Sodium (135-145) mmol/L Potassium (3.6-5.0) mmol/L Chloride (101-111) mmol/L Carbon Dioxide (21.0-31.0) mmol/L Anion Gap BUN (7-18) mg/dL Creatinine (0.6-1.3) mg/dL Est Cr Clr Drug Dosing mL/min Estimated GFR (MDRD) BUN/Creatinine Ratio Glucose (74-105) mg/dL Calcium (8.4-10.2) mg/dl Total Bilirubin (0.2-1.0) mg/dL AST (10-42) IU/L ALT (10-60) IU/L Alkaline Phosphatase (42-121) IU/L Total Protein (6.7-8.2) g/dl Albumin (3.2-5.5) g/dl Globulin Albumin/Globulin Ratio HCG, Qual HCG, Quant > 1321 H (0-25) mIU/ml Beta HCG, Quant 14142 mIU/ml Urine Color Red (YELLOW) Urine Appearance Cloudy (CLEAR) Urine pH 6.0 (5.0-9.0) Ur Specific [place] 1.020 (1.005-1.030) Urine Protein 100 H (NEGATIVE) Urine Glucose (UA) 100 H (NEGATIVE) Urine Ketones Negative (NEGATIVE) Urine Occult Blood Large H (NEGATIVE) Urine Nitrite Negative (NEGATIVE) Urine Bilirubin Negative (NEGATIVE) Urine Urobilinogen 0.2 (0.2-1.0) mg/dL Ur Leukocyte Esterase Trace H (NEGATIVE) Urine RBC Semi-packed H /HPF Urine WBC 5-10 H (0-5/HPF) /HPF Ur Epithelial Cells Few /HPF Urine Bacteria Moderate H (0-FEW/HPF) /HPF Urine Opiates Screen (NEGATIVE) Ur Oxycodone Screen (NEGATIVE) Urine Methadone Screen (NEGATIVE) Ur Barbiturates Screen (NEGATIVE) U Tricyclic Antidepress (NEGATIVE) Ur Phencyclidine Scrn (NEGATIVE) Ur Amphetamine Screen (NEGATIVE) U Methamphetamines Scrn (NEGATIVE) Urine MDMA Screen (NEGATIVE) U Benzodiazepines Scrn (NEGATIVE) Urine Cocaine Screen (NEGATIVE) U Marijuana (THC) Screen (NEGATIVE) - Re-Assessments/Exams Free Text/Narrative Re-Assessment/Exam: Findings discussed with patient, Amount of blood in vaginal vault miscarriage likely immanent. Instructed to follow up in clinic with PCP in am. Urgent follow up if increased bleeding saturating pad greater then 1/hour or experiencing dizziness. Patient tearful. Spouse supportive. Departure - Departure Time of Disposition: 23:03 Disposition: Home, Self-Care 01 Condition: Good Clinical Impression: Miscarriage - Discharge Information *PRESCRIPTION DRUG MONITORING PROGRAM REVIEWED*: Not Applicable *COPY OF PRESCRIPTION DRUG MONITORING REPORT IN PATIENT ZA: Not Applicable Instructions: Miscarriage, [id number] Referrals: Alta Mares MD [Primary Care Provider] - Forms: ED Department Discharge Additional Instructions: rest light activity urgent follow up saturation pad greater than one per hour, dizziness, clinic follow up tomorrow for recheck with Dr Webster tylenol 650mg every 4 hours as needed for discomfort
== END 2018-09-21 23:14 | disposition home or self-care (01) ==
LOC: DL.ED 20:26
DX: O03.9 Complete or unspecified spontaneous abortion without complication (principal); I10 Essential (primary) hypertension; Z3A.09 9 weeks gestation of pregnancy; Z79.899 Other long term (current) drug therapy; Z91.040 Latex allergy status
CPT/HCPCS: 36415; 80053; 80305-QW; 81001; 84702; 84703; 85027; 87086; 99284

== ENCOUNTER 2019-08-29 08:21 | Inpatient (IN) | payer MEDICAID ==
[~2019-08-29 08:21] MED LIST: Carboprost Tromethamine 250 MCG/1 ML Amp IM PRN; Lactated Ringers 1,000 ML IV SCH; Methylergonovine 0.2 MG/1 ML Amp IM PRN; Misoprostol 400 MCG (4 X 100 MCG TAB) RECTAL PRN; Ondansetron 4 MG/2 ML SDV IVPUSH PRN; Oxytocin/Normal Saline 30 UNIT/500 ML BAG IV SCH; Sodium Chloride 0.9% 10 ML Syringe FLUSH PRN; Tranexamic Acid 1,000 MG in Sodium Chloride 0.9% 100 ML IV PRN; fentaNYL 100 MCG/2 ML SDV IVPUSH PRN
[2019-08-29 09:00] LABS: ANION GAP 14.1; CHLORIDE,CL 105 mmol/L (101-111); SODIUM,NA 135 mmol/L (135-145)
[2019-08-29] MEDS: Misoprostol 50 MCG (1/2 of 100 MCG) Tab PO PRN ×2 (09:45→13:51)
--- NOTE | 2019-08-29 09:50 | PCM.LDHP ---
L&D History of Present Illness - General Date of Service: 08/29/19 (Admission H&P) Admit Problem/Dx: Patient Status Order with Admit Dx/Problem 08/29/19 00:17 Patient Status [ADT] Routine Admission Diagnosis/Problem Admission Diagnosis/Problem Gestational diabetes requiring insulin Induction for high risk chronic HTN, AMA, IDGDM, increased BMI 08/29/19 09:46 Source of Information: Patient, Family, Old Records, Provider, RN, Significant Other, Other ([facility] notes and episode) History Limitations: Reports: No Limitations - History of Present Illness Introduction:: Diann is a delightful 38yo high risk currently @ 38w3d here for induction as recommended by [facility]. Hx of AMA, chronic HTN controlled with labetalol 200mg BID throughout , IDGDM, BMI >50 has done well. weekly BPP have been reassuring. Timing/Duration: Reports: other (no contractions) Location, : Reports: Uterus - Related Data Allergies/Adverse Reactions: Allergies Allergy/AdvReac Type Severity Reaction Status Date / Time latex Allergy Itching Verified 08/29/19 10:30 Home Medications: Home Meds Labetalol HCl [Labetalol] 200 mg PO DAILY 11/05/15 [History] Levothyroxine [Synthroid] 150 mcg PO ACBREAKFAST 11/05/15 [History] Pnv with Ca,No.72/Iron/Fa [ Plus Multivitamin Tab] 1 tab PO DAILY [History] Insulin NPH Human Isophane [Humulin N] 20 units SQ BEDTIME 08/07/19 [History] Past Medical History HEENT History: Reports: None Cardiovascular History: Reports: Hypertension, Other (See Below) Other Cardiovascular History: gestational and chronic Respiratory History: Reports: Asthma Gastrointestinal History: Reports: GERD Genitourinary History: Reports: None ACUTE CARE CERTIFIED NURSING ASSISTANT History: Reports: , Other (See Below) 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: LEEP procedure Musculoskeletal History: Reports: None Neurological History: Reports: None Psychiatric History: Reports: Anxiety, Depression Endocrine/Metabolic History: Reports: Hypothyroidism Hematologic History: Reports: None Immunologic History: Reports: None Oncologic (Cancer) History: Reports: None Dermatologic History: Reports: None - Infectious Disease History Infectious Disease History: Reports: None - Past Surgical History Head Surgeries/Procedures: Reports: None HEENT Surgical History: Reports: Tonsillectomy Social & Family History - Family History Family Medical History: Noncontributory - Tobacco Use Smoking Status *Q: Never Smoker - Caffeine Use Caffeine Use: Reports: Coffee, Soda - Living Situation & Occupation Living situation: Reports: (lives with William and 2 children, daughter and son), with Family (Lives with and 2 children.) H&P Review of Systems - Review of Systems: Review Of Systems: Comprehensive ROS is negative, except as noted in HPI. L&D Exam - Exam Exam: See Below - Vital Signs Weight: 320 lb (145kg, BMI 53) - Villarreal Score Villarreal Score Cervix Position: Posterior Villarreal Score Consistency: Soft Villarreal Score Effacement: 0-30% Villarreal Score Dilation: 1-2 cm Villarreal Score 's Station: -3 Villarreal Score Total: 3 - Exam General: Alert, Oriented HEENT: Conjunctiva Clear, Hearing Intact, Pupils Equal, Pupils Reactive Lungs: Clear to Auscultation, Normal Respiratory Effort Cardiovascular: Regular Rate, Regular Rhythm Rectal Exam: Deferred Genitourinary: Normal external exam Back Exam: Normal Inspection Extremities: Normal Inspection Skin: Warm Psychiatric: Alert - Patient Data Lab Results Last 24 hrs: Laboratory Results - last 24 hr 08/29/19 08/29/19 Range/Units 08:33 08:33 WBC 8.4 (5.0-10.0) 10^3/uL RBC 4.52 (4.2-5.4) 10^6/uL Hgb 13.0 (12.0-16.0) g/dL Hct 39.5 (37.0-47.0) % MCV 87.4 (80-100) fL MCH 28.8 (27.0-34.0) pg MCHC 32.9 L (33.0-35.0) g/dL Plt Count 196 D (150-450) 10^3/uL Sodium 135 (135-145) mmol/L Potassium 4.1 (3.6-5.0) mmol/L Chloride 105 (101-111) mmol/L Carbon Dioxide 20.0 L (21.0-31.0) mmol/L Anion Gap 14.1 BUN 13 (7-18) mg/dL Creatinine 0.7 (0.6-1.3) mg/dL Est Cr Clr Drug Dosing TNP Estimated GFR (MDRD) > 60 Glucose 95 (74-105) mg/dL Uric Acid 5.3 (2.6-7.2) mg/dL Calcium 9.2 (8.4-10.2) mg/dl AST 18 (10-42) IU/L ALT 12 (10-60) IU/L Lactate Dehydrogenase 84 L (91-180) IU/L Result Diagrams: 08/29/19 08:33 08/29/19 08:33 - Problem List (1) AMA (advanced maternal age) multigravida 35+ SNOMED Code(s): 112115079 ICD Code: O09.529 - SUPERVISION OF ELDERLY MULTIGRAVIDA, UNSPECIFIED TRIMESTER Status: Acute Current Visit: Yes (2) Gestational diabetes mellitus (GDM) requiring insulin SNOMED Code(s): 24678391, 254830984 ICD Code: O24.414 - GESTATIONAL DIABETES IN , INSULIN CONTROLLED Status: Acute Current Visit: Yes (3) Chronic hypertension affecting SNOMED Code(s): 88900157 ICD Code: O10.919 - UNSP PRE-EXISTING HTN COMP , UNSP TRIMESTER Status: Acute Current Visit: Yes (4) GERD (gastroesophageal reflux disease) SNOMED Code(s): 060291739 ICD Code: K21.9 - GASTRO-ESOPHAGEAL REFLUX DISEASE WITHOUT ESOPHAGITIS Status: Acute Current Visit: Yes (5) Blood type O+ SNOMED Code(s): 284072891 ICD Code: Z67.40 - TYPE O BLOOD, RH POSITIVE Status: Acute Current Visit : Yes (6) Rubella immune SNOMED Code(s): 563916920 ICD Code: Z78.9 - OTHER SPECIFIED HEALTH STATUS Status: Acute Current Visit: Yes (7) Hx LEEP (loop electrosurgical excision procedure), cervix, SNOMED Code(s): 75915444773335 ICD Code: O34.40 - MATERNAL CARE FOR OTH ABNLT OF CERVIX, UNSP TRIMESTER; Z98.890 - OTHER SPECIFIED POSTPROCEDURAL STATES Status: Acute Current Visit : Yes (8) Thyroid disease during in third trimester SNOMED Code(s): 117435524 ICD Code: O99.283 - ENDO, NUTRITIONAL AND METAB DISEASES COMP PREG, THIRD TRI ; E07.9 - DISORDER OF THYROID, UNSPECIFIED Status: Acute Current Visit: Yes Problem List Initiated/Reviewed/Updated: Yes Orders Last 24hrs: Active Orders 24 hr Category Date Time Status Patient Status [ADT] Routine ADT 08/29/19 00:17 Active Blood Glucose Check, Bedside [RC] ASDIRECTED Care 08/29/19 08:00 Active Communication Order [RC] ASDIRECTED Care 08/29/19 00:17 Active Communication Order [RC] ASDIRECTED Care 08/29/19 00:17 Active Communication Order [RC] ASDIRECTED Care 08/29/19 00:17 Active Communication Order [RC] ASDIRECTED Care 08/29/19 00:17 Active Communication Order [RC] ASDIRECTED Care 08/29/19 00:17 Active Heart Tones [RC] INTERMITTENT Care 08/29/19 00:23 Active Monitoring [RC] PER UNIT ROUTINE Care 08/29/19 00:17 Active NST [ Non Stress Test] [RC] PER UNIT ROUTINE Care 08/29/19 08:00 Active Nitrous Oxide Delivery [RC] ASDIRECTED Care 08/29/19 00:29 Active Notify Provider Vital Signs OB [RC] ASDIRECTED Care 08/29/19 00:17 Active Notify Provider [RC] PRN Care 08/29/19 00:17 Active Notify Provider [RC] PRN Care 08/29/19 00:17 Active Notify Provider [RC] PRN Care 08/29/19 00:23 Active Notify Provider [RC] STAT Care 08/29/19 00:17 Active OB Discontinue Nitrous Oxide [RC] ASDIRECTED Care 08/29/19 00:29 Active POC Labs [RC] ASDIRECTED Care 08/29/19 00:17 Active Peripheral IV Care [RC] . DIRECTED Care 08/29/19 00:21 Active Up ad Nikki [RC] PER UNIT ROUTINE Care 08/29/19 00:17 Active Vaginal Exam [RC] PRN Care 08/29/19 00:17 Active Vital Signs [RC] PER UNIT ROUTINE Care 08/29/19 00:17 Active PROTEIN/CREATININE RATIO,URINE [URCHEM] Routine Lab 08/29/19 08:45 Received Acetaminophen [Tylenol] Med 08/29/19 00:17 Active 650 mg PO Q4H PRN Carboprost Tromethamine [Hemabate DS] Med 08/29/19 00:29 Active 250 mcg IM ONETIME PRN Lactated Ringers [Ringers, Lactated] 1,000 ml Med 08/29/19 00:30 Active IV ASDIRECTED Methylergonovine [Methergine] Med 08/29/19 00:29 Active 0.2 mg IM ONETIME PRN Ondansetron [Zofran] Med 08/29/19 00:23 Active 4 mg IVPUSH Q4H PRN Oxytocin/Normal Saline [Pitocin in NS 30 UNIT/500 ML] Med 08/29/19 00:30 Active 30 unit in 500 ml IV TITRATE Sodium Chloride 0.9% [Saline Flush] Med 08/29/19 00:17 Active 10 ml FLUSH ASDIRECTED PRN Tranexamic Acid [Cyklokapron] 1,000 mg Med 08/29/19 00:23 Active Sodium Chloride 0.9% [Normal Saline] 100 ml IV ONETIME fentaNYL [Sublimaze] Med 08/29/19 00:29 Active 100 mcg IVPUSH Q1H PRN hydrOXYzine HCL [Atarax] Med 08/29/19 00:23 Active 50 mg PO Q6H PRN miSOPROStoL [Cytotec] Med 08/29/19 00:17 Active 50 mcg PO Q4H PRN miSOPROStoL [Cytotec] Med 08/29/19 00:23 Active 800 mcg RECTAL ASDIRECTED PRN Peripheral IV Insertion Adult [OM.PC] Urgent Oth 08/29/19 00:17 Ordered Resuscitation Status Routine Resus Stat 08/29/19 00:23 Ordered Medication Orders Acetaminophen (Tylenol) 650 mg PO Q4H PRN PRN Reason: Pain/Fever Carboprost Tromethamine (Hemabate Ds) 250 mcg IM ONETIME PRN PRN Reason: Bleeding Fentanyl (Sublimaze) 100 mcg IVPUSH Q1H PRN PRN Reason: Pain Hydroxyzine HCl (Atarax) 50 mg PO Q6H PRN PRN Reason: Itching Lactated Ringer's (Ringers, Lactated) 1,000 mls @ 999 mls/hr IV ASDIRECTED MEGAN Oxytocin/Sodium Chloride (Pitocin In Ns 30 Unit/500 Ml) 30 unit in 500 mls @ 2 mls/hr IV TITRATE MEGAN; Protocol Tranexamic Acid 1,000 mg/ (Sodium Chloride) 110 mls @ 660 mls/hr IV ONETIME PRN PRN Reason: Bleeding Methylergonovine Maleate (Methergine) 0.2 mg IM ONETIME PRN PRN Reason: Bleeding Misoprostol (Cytotec) 50 mcg PO Q4H PRN PRN Reason: cervical ripening Misoprostol (Cytotec) 800 mcg RECTAL ASDIRECTED PRN PRN Reason: Hemorrhage Ondansetron HCl (Zofran) 4 mg IVPUSH Q4H PRN PRN Reason: Nausea/Vomiting Sodium Chloride (Saline Flush) 10 ml FLUSH ASDIRECTED PRN PRN Reason: Keep Vein Open Assessment/Plan Comment:: Assessment: High risk 38yo WF @ 38w3d chronic HTN, controlled gestational DM, controlled with single daily insulin dose hypothyroidism, controlled AMA Hx anxiety/depression--no medication during Hx RAD GERD BMI increased Rubella Immune Blood type O+ Hx LEEP pre-E labs reassuring reactive/reassuring NST plan: induction as planned. Labs look good/reassuring. NST reactive. AGA baby estimated 8 1/2- 9# Cytotec placed without difficulty as noted. 50mcg vaginally will continue to follow repeat Cytotec @ 2pm if indicated as discussed. consider AROM, pitocin infusion if needed and discussed in clinic. all questions answered. Diann and William happy with plan. hmb
[2019-08-29] MEDS ORDERED: Labetalol 100 MG Tab PO ONE (17:19)
[2019-08-30] MEDS: hydrOXYzine HCl 25 MG Tab PO PRN ×2 (01:00→20:52)
[2019-08-30] MEDS: Lactated Ringers 1,000 ML IV SCH ×4 (08:47→22:23)
[2019-08-30] MEDS ORDERED: Labetalol 100 MG Tab PO ONE (09:07)
--- NOTE | 2019-08-30 12:54 | PN ---
DATE: 08/30/2019 SUBJECTIVE: Cathie was admitted yesterday for induction. This delightful 38- year-old white female, G4, P2-0-1-2 at 38 weeks 4 days, came in yesterday for induction. Received 2 Cytotecs and we were ready to place a 3rd, however, her contractions had increased to every 2 to 3 minutes. Subsequently, we started some Pitocin as she was not really feeling her contractions and they were not effective at changing her cervix. We kept her on the Pitocin during the night to help ripen up her cervix. She has not been feeling a lot of her contractions. She did develop some intermittent late decelerations early this morning and we did check her Pitocin off and allowed her uterus to rest. The tracings have subsequently looked good. Her blood pressure has looked acceptable. We have continued her labetalol p.o. and that has helped to keep her pressures under control. She has a history of chronic hypertension. She has no signs of preeclampsia symptoms and her preeclampsia labs on admit were within normal limits. We were suspecting this baby was about 8-1/2 to 9 pounds. Since she had not had a growth ultrasound for about 3 weeks, as we had been doing them every 4 weeks. Her last one was 07/31 showing 5 pounds 15 ounces. Measuring about 73% with head circumference and abdominal circumference appropriate, and abdominal circumference was not noted to be larger than the head circumference at that time. We did go ahead and repeat it today and it showed estimated size at 70%. 3694 g at 8 pounds 2 ounces. The abdominal circumference measuring 39 weeks 3 days with biparietal diameter 39 weeks 4 days and head circumference 39 weeks 3 days. The interval growth is appropriate. heart rate was 139 at the time. I do not see an DAKSHA noted on the report, however, I do suspect that it has continued to be on the generous side. Her sugars have remained in the desirable range. We will continue to check them at the bedside with fasting values and 1- or 2-hour postprandial. We would like to see her fasting remain less than 95, 1-hour postprandial less than 140, 2- hour postprandial less than 120. At this time, her cervix is now 3+ cm dilated, 90+ percent effaced. Vertex is at a -2 station, but still can be pushed up and the bag of water is palpable. She is not in active labor at this time. We will begin her Pitocin infusion again and see if we can get her into an effective labor pattern today. Once we have clearance from Surgery that they have an open room available, we will consider artificial rupture of membranes for her as I think this may be helpful once the head is little bit lower to get her into a more effective labor pattern. She has delivered a nearly 8-pound baby in the past and likely can deliver this baby vaginally. We will watch for any signs of intolerance to labor. Diann and her do understand that if the baby is not tolerating labor, we may need to consider other options for her such as surgical intervention. However, at this time, further management will depend on her clinical course. All their questions have been answered. [facility] /[id number]
--- NOTE | 2019-08-30 15:41 | PCM.SN ---
- Free Text/Narrative Note: DOS: 08-30-2019 Progress note: 1530 Doing well. feeling the contractions now. FHTs 130-140, good variability, no decels pitocin @ 8 3-4cm 95% effaced -2 station vertex now well applied with contractions. AROM, clear fluid, copious amounts the train has left the station. b
[2019-08-30] MEDS ORDERED: fentaNYL 100 MCG/2 ML SDV ONE (17:10)
[2019-08-30] MEDS ORDERED: EPINEPHrine 1 MG/1 ML Amp ONE (17:11)
--- NOTE | 2019-08-30 17:47 | PCM.PRNOTE ---
- Free Text/Narrative Note: Requested to provide analgesia to full term patient in severe pain. Upon entering the room, patient is sitting on edge of bed complaining of severe abdominal/pelvic pain and discomfort. Procedure was discussed with patient including adverse outcomes and expectations. Pt consented to analgesia, SAB/ IT. Pt placed into a proper sitting position. Landmarks for SAB/IT were identified and marked. Hands were washed and appropriate PPE was applied. Back was prepped with betadine x3. A sterile, transparent, fenestrated drape was applied. Excess betadine was removed. Using 3 mL of a 1% lidocaine solution , a skin wheel was placed at the L2/L3 interspace. A 24 ga (4 inch) Pencan spinal needle was inserted until positive for CSF. Negative for heme or paresthesias. Injected fentanyl 30 mcg, sufentanil 25 mcg, and 7.5 mg of a 0.75 % bupivacaine solution with an epi wash. Pt was placed left lateral position for approximately 20 minutes. There were zero complications or adverse outcomes. Will continue to monitor. Procedure Date & Time: 08/30/19 [id number]
[2019-08-30] MEDS ORDERED: Oxytocin/Normal Saline 30 UNIT/500 ML BAG ONE (18:21)
--- NOTE | 2019-08-30 19:18 | PN ---
DATE: 08/30/2019 Evelyn was doing well in Labor, progressing along and was 5 cm dilated. We had Anesthesia come in as her Nitronox was no longer working to control her pain. Her Pitocin is at 10. She is having contractions approximately every 3 minutes and making good progress with her cervix. However, she developed bradycardia. At first, they had just a late component, and on moving her around, she continued to have persistent deep variables and some late decelerations. Therefore, an internal monitor was placed. We had oxygen on her and had repositioned her on both sides and with a peanut ball between her legs. We made sure was not maternal pulse and was pulse. Her cervix was 9 cm. However, the baby's head still remained very high, actually too high to put a vacuum on. The patient was not feeling any urge to push or pressure and in fact having difficulty controlling her legs. Staff was having to move her legs and reposition her. Due to the persistent bradycardia, the patient and her understand the recommendation that we go to section for delivery as soon as possible. I have also noted some bloody show with the amniotic fluid, which has been clear up to this point, and it does appear to be some bright red blood and we will watch for signs of placental abruption when we do the section. A Camacho catheter was placed without difficulty by me with sterile technique. Return of clear urine easily noted. heart tracings are improving and are now remaining above 90. Her Pitocin has been turned off. At this point, we will likely be going with general anesthesia and the patient understands that. Dr. Cruran and Dr. Webster will be called in to help assist with the surgery and the baby. She will receive 2 g of Ancef IV and understands the risk of possible infection and the need for continued monitoring and possible need for further parental antibiotic treatment. The patient understands the risk of possible DVT, especially with her increased BMI, and she will need CHAD stockings and SCDs and early ambulation. We will review further as needed with them. They understand the risk of bleeding and possible hemorrhage and the risk of possible need of blood transfusion with its inherent risks. All questions have been answered for this delightful couple and they wished to proceed with urgent section as outlined. MOD /[id number] ADAL
[2019-08-30] MEDS ORDERED: Benzocaine/Menthol 20%-0.5% Spray 56 GM Canister TOP PRN (19:34)
[2019-08-30] MEDS ORDERED: Simethicone 80 MG Tab.Chew PO PRN (19:34)
[2019-08-30] MEDS ORDERED: Zolpidem 5 MG Tab PO PRN (19:34)
[2019-08-30] MEDS ORDERED: Butorphanol 2 MG/ML SDV IVPUSH STA (20:24)
[2019-08-30] MEDS ORDERED: Famotidine 20 MG/2 ML SDV IVPUSH STA (20:25)
[2019-08-30] MEDS: Ibuprofen 800 MG Tab PO PRN (20:53)
[2019-08-30] MEDS: Docusate Sodium 100 MG Cap PO PRN (20:53)
[2019-08-30] MEDS: Labetalol 100 MG Tab PO SCH (21:06)
[2019-08-30] MEDS: ceFAZolin 1 GM in Premix Bag 1 BAG IV SCH (21:52)
--- NOTE | 2019-08-31 03:19 | DEL ---
DATE: 08/30/2019 DIAGNOSES: A 38-year-old 4, now para 3-0-1-3, 38 week 4 day, high-risk , advanced maternal age, insulin-dependent gestational diabetes well controlled, chronic hypertension well controlled with no sign of preeclampsia, hypothyroidism controlled. Rubella immune. O positive blood type. Group B strep negative. Gastroesophageal reflux disease. History loop electrosurgical excision procedure. BMI greater than 50 (54). OBSTETRIC PROCEDURES: Include nonstress test interpretation, Cytotec induction, Pitocin augmentation/infusion, artificial rupture of membranes, Nitrox use, intrathecal placement, FSE placement, vacuum-assisted vaginal delivery in urgent situation in the OR with standby. FINDINGS: This delightful 38-year-old high-risk G4, P2 had presented at 38-3/7 weeks' gestation for induction as scheduled due to her high-risk nature. Please see her admission H and P and her OB labor notes for details. She had developed an effective labor pattern, was progressing well in labor, and had an intrathecal placed. She fairly rapidly developed nonreassuring heart tone tracing. She was noted to have some bradycardia with contractions, some of which had a late component, some deep variables and late decelerations. The heart tones were not recovering between contractions. Mom had oxygen in place and we did try maternal repositioning. To confirm that it was heart tones and not maternal pulse, we did place an internal electrode on the scalp and it did confirm the bradycardia. She had a fluid bolus. Increasingly, also noted the amniotic fluid had gone from clear fluid to bloody. Therefore, we discussed the situation with the patient and her elected to go to urgent section since we were unable to see any sign that heart tones were recovering. Once we had staff set and were down in the OR, we were deciding whether to proceed with spinal or general anesthesia. As we were able to have adequate staff to position the patient in exaggerated McRobert position, she had an excellent intrathecal in place and was unable to move her lower extremities on her own. Therefore, with staff able to her in exaggerated McRobert's, we were able to assess that her cervix was now completely dilated. I did have Dr. Curran check her also and we elected a trial of vacuum-assisted vaginal delivery while in the OR with the option of a Zavanelli maneuver and an emergent if our vacuum assist was unsuccessful if necessary. Hand-held vacuum was placed without difficulty and pumped up into the green zone. With her next contraction, I did apply pressure. Dr. Curran asked the patient to assist with pushing and she did an excellent job, and with 2 pushes and assistance from the vacuum, we were able to deliver this viable female infant onto the bed. She did have some crying attempts on the OR table. We dried and stimulated her. Cord was doubly clamped and cut by me and she was carried to the warmer by Dr. Webster. At that time, she was found to have a decreased respiratory effort. Her heart rate was over 100, but otherwise her score was 2 at one minute, and they proceeded with resuscitation. Please see that note for details. Of note, she did recover well, and her scores were 2, 6, and 8 at one, five, and ten minutes respectively. She was easily weaned off her oxygen and is on 100% on room air by the time mom was back to the floor and was out for ssop-az-wmnw contact. Cord blood sample was obtained. Three-vessel cord was noted. Placenta was delivered intact with trailing membranes and later inspected and found to have a central cord insertion with no sign of avulsion. There was no sign of infarction that we could see. The cord was normal size and shape and the placenta itself appeared intact, complete with some calcification, but appeared normal. Perineum was examined and found to be intact. Fundus was firm, and Pitocin was infusing per IV protocol. Estimated blood loss was approximately 250 mL. Mom was stable and feeling well. She was transferred back from the OR to Labor and Delivery. We will continue to follow her with routine orders. She did receive some IV Ancef prior to the procedure as we are planning on urgent section. We will continue her Ancef for the next 24 hours due to the intravaginal manipulation. She does have a Camacho catheter in place that was draining clear urine on the way down to the OR and a slight amount of hematuria was noted following her delivery, which seems to already be clearing. Her vitals are stable. Please see our orders for further details. [facility]L /[id number] ADAL
[2019-08-31] MEDS: ceFAZolin 1 GM in Premix Bag 1 BAG IV SCH ×2 (06:08→14:19)
[2019-08-31] MEDS: Ibuprofen 800 MG Tab PO PRN ×2 (06:09→17:33)
[2019-08-31] MEDS: Docusate Sodium 100 MG Cap PO PRN ×2 (09:38→21:04)
[2019-08-31] MEDS: Prenatal Multivitamin with Calcium/Folic Acid/Iron Tab PO SCH (09:38)
[2019-08-31] MEDS: Labetalol 100 MG Tab PO SCH ×2 (09:39→21:03)
[2019-08-31] MEDS ORDERED: EPINEPHrine 1 MG/1 ML Amp ONE (11:20)
[2019-08-31] MEDS ORDERED: fentaNYL 100 MCG/2 ML SDV ITHECAL ONE (11:20)
[2019-08-31] MEDS: Acetaminophen 325 MG Tab PO PRN ×2 (12:13→21:04)
--- NOTE | 2019-08-31 14:19 | PCM.SN ---
- Free Text/Narrative Note: DOS: 08-31-2019 PPD #1, doing well Delivered last night by VAVD in OR for intolerance to labor and bradycardia. intact perineum. voiding well. glucose has been normal since delivery BP fairly well controlled without her labetolol right now taking her own thyroid meds afebrile, fundus firm. nursing, has seen lactatin sfdc consultant. no new concerns Plan discharge tomorrow. Dr. Webster to see and discharge. no need for hemogram in a.m. all questions. answered. b
[2019-09-01] MEDS: Ibuprofen 800 MG Tab PO PRN (01:16)
[2019-09-01] MEDS: hydrOXYzine HCl 25 MG Tab PO PRN (03:35)
[2019-09-01 08:07] VITALS: BP 151/90
[2019-09-01] MEDS: Prenatal Multivitamin with Calcium/Folic Acid/Iron Tab PO SCH (08:37)
[2019-09-01] MEDS: Docusate Sodium 100 MG Cap PO PRN (08:37)
[2019-09-01] MEDS: Labetalol 100 MG Tab PO SCH (08:38)
[2019-09-01] MEDS: Acetaminophen 325 MG Tab PO PRN (08:38)
[2019-09-01 08:40] VITALS: PULSE 67
--- NOTE | 2019-09-01 08:50 | PCM.SN ---
- Free Text/Narrative Note: Progress Note/Discharge Summary Admit date: 08/29/19 Discharge date: 09/01/19 Delivering Physician: Dr. Mares Discharging Physician: Dr. Webster Admission Diagnoses: 38 yo at 38w3d AMA IDGDM Thyroid BMI > 50 Chronic HTN h/o LEEP High Risk Summary of Hospital Course: Evelyn is a 38 yo at 38w3d EGA who presented to labor and delivery on 08/29 for induction of labor per [facility] for high risk . She progressed with the medications, but started to have non-reassuring heart tones. She was taken to the OR where, with team present, a vacuum assisted vaginal delivery was successful. She delivered a viable female infant weighing 3335 grams with Apgars of 2, 6 and 8 respectively. EBL was 250 mL. The patient had an unremarkable course. By day 2, the patient was doing well; ambulating, voiding, and tolerating general diet. Her pain was well controlled with oral pain medications, and was she was discharged to home. Admission hemoglobin was 13.0 gm/dL. Discharge Exam: Last Vital Signs Temp 98.4 F 09/01/19 08:00 Pulse 67 09/01/19 08:38 Resp 18 09/01/19 08:00 BP 151/90 H 09/01/19 08:38 Pulse Ox 98 09/01/19 08:00 Gen: No distress CV: Well-perfused, 2+ distal pulses, regular rate and rhythm Resp: Non-Labored, symmetrical chest expansion, clear to auscultation Abd: Fundus is firm and below umbilicus. Ext: Moves all extremities well, no edema. Discharge (or Final) Diagnoses: 1. Intrauterine at 38w4d 2. Vacuum Assisted Vaginal Delivery 3. IDGDM 4. Chronic HTN 5. AMA 6. BMI > 50 7. High risk Discharge Details: Admission Condition: good Discharged Condition: good Disposition: Home Discharge Medications: over the counter ibuprofen Diet: regular diet Activity: no heavy lifting for 2 weeks, pelvic rest for 6 weeks. Follow-up with Dr. Mares in 6-8 weeks for visit. Jyotsna Webster MD
== END 2019-09-01 11:29 | disposition home or self-care (01) | DRG 806 ==
LOC: DL.OBCHECK 08:21 → DL.OB 09:04 → OBSVTOIN 08-30 18:36
PROVIDERS: ADMIT Family Medicine; ATTEND Family Medicine
PROC: 10D07Z6 Extraction of Products of Conception, Vacuum, Via Natural or Artificial Opening (ICD-10-PCS; principal; 2019-08-30)
PROC: 3E0P7VZ Introduction of Hormone into Female Reproductive, Via Natural or Artificial Opening (ICD-10-PCS; 2019-08-30)
PROC: 10907ZC Drainage of Amniotic Fluid, Therapeutic from Products of Conception, Via Natural or Artificial Opening (ICD-10-PCS; 2019-08-30)
PROC: 3E033VJ Introduction of Other Hormone into Peripheral Vein, Percutaneous Approach (ICD-10-PCS; 2019-08-30)
PROC: 3E0R3BZ Introduction of Anesthetic Agent into Spinal Canal, Percutaneous Approach (ICD-10-PCS; 2019-08-30)
PROC: 00HU33Z Insertion of Infusion Device into Spinal Canal, Percutaneous Approach (ICD-10-PCS; 2019-08-30)
DX: O24.424 Gestational diabetes mellitus in childbirth, insulin controlled (principal); O10.92 Unspecified pre-existing hypertension complicating childbirth; Z37.0 Single live birth; Z3A.38 38 weeks gestation of pregnancy; O99.284 Endocrine, nutritional and metabolic diseases complicating childbirth; E03.9 Hypothyroidism, unspecified; Z67.40 Type O blood, Rh positive; O76 Abnormality in fetal heart rate and rhythm complicating labor and delivery
CPT/HCPCS: 36415; 51702; 59409; 76815; 80048; 82570; 82962; 83615; 84156; 84450; 84460; 84550; 85027; A9270-GY; J0171; J0690; J2405; J2590; J3010; J7120

== ENCOUNTER 2020-12-19 10:25 | Inpatient (IN) | payer MEDICAID ==
[2020-12-19 13:04] LABS: CORONAVIRUS COVID-19 NAA POSITIVE (NEGATIVE)
[2020-12-19 13:09] LABS: ANION GAP 16.1 mEq/L (7-13); CHLORIDE,CL 100 mmol/L (98-107); SODIUM,NA 136 mmol/L (136-145)
--- NOTE | 2020-12-19 13:43 | CR ---
EXAMINATION: Chest 1V Frontal SEX: Female AGE: 39 years CLINICAL HISTORY: 39-year-old obese female with chest pain. Note: Covid +. Interpretation: Abnormal. *Scattered peripheral multi lobar interstitial lung densities consistent with Covid19 lung infection (pneumonia). Normal cardiac silhouette (size and configuration) accentuated by poor inspiratory effort. No pulmonary vascular congestion, alveolar edema or dependent pleural effusion. No lung mass or hilar lymphadenopathy. No pneumothorax or pneumomediastinum.
--- NOTE | 2020-12-19 15:45 | EDM.PDOC ---
ED HPI GENERAL MEDICAL PROBLEM - General Chief Complaint: Respiratory Problem Stated Complaint: [id number] HARD TO BREATH PENDING COVID TEST Time Seen by Provider: 12/19/20 11:45 Source of Information: Reports: Patient, RN, RN Notes Reviewed History Limitations: Reports: No Limitations - History of Present Illness INITIAL COMMENTS - FREE TEXT/NARRATIVE: Patient is a 39-year-old female who presents to ER with complaint of shortness of breath and chest pains. States she began having symptoms last weekend. She saw her primary provider on Tuesday and was tested for COVID. She has not gotten any COVID results. She was started on steroids and antibiotics. Today increased shortness of breath, fever and body aches. Onset: Gradual Duration: Getting Worse Location: Reports: Chest Quality: Reports: Ache Severity: Moderate Improves with: Reports: None Worsens with: Reports: None Associated Symptoms: Reports: No Other Symptoms Generalized Pain Score (Numeric/FACES): 4 - Related Data Allergies Allergy/AdvReac Type Severity Reaction Status Date / Time latex Allergy Itching Verified 12/19/20 10:59 Home Meds: Home Meds Labetalol HCl [Labetalol] 200 mg PO TID 11/05/15 [History] Levothyroxine [Synthroid] 150 mcg PO ACBREAKFAST 11/05/15 [History] Ascorbic Acid [Vitamin C] 500 mg PO DAILY 12/19/20 [History] Cholecalciferol (Vitamin D3) [Vitamin D3] 2,000 unit PO DAILY 12/19/20 [History] Sertraline [Zoloft] 50 mg PO DAILY 12/19/20 [History] levoFLOXacin [Levaquin] 500 mg PO DAILY 12/19/20 [History] predniSONE [Prednisone] 40 mg PO DAILY 12/19/20 [History] Past Medical History HEENT History: Reports: None Cardiovascular History: Reports: Hypertension, Other (See Below) Other Cardiovascular History: gestational and chronic Respiratory History: Reports: Asthma Gastrointestinal History: Reports: GERD Genitourinary History: Reports: None 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: , Other (See Below) 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, 5 natural births, 2 miscarriages Musculoskeletal History: Reports: None Neurological History: Reports: None Psychiatric History: Reports: Anxiety, Depression Endocrine/Metabolic History: Reports: Hypothyroidism Hematologic History: Reports: None Immunologic History: Reports: None Oncologic (Cancer) History: Reports: None Dermatologic History: Reports: None - Infectious Disease History Infectious Disease History: Reports: None - Past Surgical History Head Surgeries/Procedures: Reports: None HEENT Surgical History: Reports: Tonsillectomy Social & Family History - Family History Family Medical History: No Pertinent Family History - Tobacco Use Tobacco Use Status *Q: Never Tobacco User - Caffeine Use Caffeine Use: Reports: Coffee, Soda - Recreational Drug Use Recreational Drug Use: No - Living Situation & Occupation Living situation: Reports: (lives with William and 2 children, daughter and son), with Family (Lives with and 2 children.) ED ROS GENERAL - Review of Systems Review Of Systems: Comprehensive ROS is negative, except as noted in HPI. ED EXAM, GENERAL - Physical Exam Exam: See Below Exam Limited By: No Limitations General Appearance: Alert, Lethargic Eye Exam: Bilateral Eye: EOMI, Normal Inspection, PERRL Ears: Normal External Exam, Normal Canal, Hearing Grossly Normal, Normal TMs Nose: Normal Inspection, Normal Mucosa, No Blood Throat/Mouth: Normal Inspection, Normal Lips, Normal Teeth, Normal Gums, Normal Oropharynx, Normal Voice, No Airway Compromise Head: Atraumatic, Normocephalic Neck: Normal Inspection Respiratory/Chest: Decreased Breath Sounds Cardiovascular: Normal Peripheral Pulses, Regular Rate, Rhythm, No Edema, No Gallop, No JVD, No Murmur, No Rub GI/Abdominal: Normal Bowel Sounds, Soft, Non-Tender, No Organomegaly, No Distention, No Abnormal Bruit, No Mass (Female) Exam: Deferred Rectal (Female) Exam: Deferred Back Exam: Normal Inspection, Full Range of Motion, NT Extremities: Normal Inspection, Normal Range of Motion, Non-Tender, Normal Capillary Refill, No Pedal Edema Neurological: Alert, Oriented, CN II-XII Intact, Normal Cognition, Normal Gait, Normal Reflexes, No Motor/Sensory Deficits Psychiatric: Normal Affect, Normal Mood Skin Exam: Warm, Dry, Intact, Normal Color, No Rash Lymphatic: No Adenopathy #1 Interpretation EKG Date: 12/19/20 Time: 12:11 Rhythm: Other (sinus rhythm) Rate (Beats/Min): 82 EKG Interpretation Comments: ventricular bigemincy Course - Vital Signs Last Recorded V/S: Last Vital Signs Temp 97.4 F 12/20/20 03:46 Pulse 54 L 12/20/20 03:46 Resp 22 H 12/20/20 03:46 BP 137/93 H 12/20/20 03:46 Pulse Ox 91 L 12/20/20 03:46 - Orders/Labs/Meds Orders: Active Orders 24 hr Category Date Time Status CULTURE BLOOD [BC] Stat Lab 12/19/20 12:30 Received CULTURE BLOOD [BC] Stat Lab 12/19/20 12:35 Received Blood Culture x2 Reflex Set [OM.PC] Stat Oth 12/19/20 12:00 Ordered Medication Orders Dexamethasone (Dexamethasone 4 Mg/Ml Sdv) 6 mg IVPUSH DAILY [facility] Last Admin: 12/19/20 18:09 Dose: 6 mg Documented by: DEVIKA Enoxaparin Sodium (Enoxaparin 40 Mg/0.4 Ml Syringe) 40 mg SUBCUT BID [facility] Last Admin: 12/19/20 21:46 Dose: 40 mg Documented by: SHAILA Remdesivir 100 mg/ Sodium (Chloride) 100 mls @ 100 mls/hr IV Q24H [facility] Stop: 12/23/20 18:59 Ibuprofen (Ibuprofen 400 Mg Tab) 400 mg PO Q6H PRN PRN Reason: Pain (mild 1-3) Last Admin: 12/19/20 21:49 Dose: 400 mg Documented by: SHAILA Labetalol HCl (Labetalol 100 Mg Tab) 200 mg PO TID [facility] Last Admin: 12/19/20 21:54 Dose: 200 mg Documented by: SHAILA Levothyroxine Sodium (Levothyroxine 100 Mcg Tab) 150 mcg PO ACBREAKFAST [facility] Last Admin: 12/20/20 06:33 Dose: 150 mcg Documented by: SHAILA Ondansetron HCl (Ondansetron 4 Mg Tab.Dis) 4 mg PO Q4H PRN PRN Reason: nausea, able to take PO Sertraline HCl (Sertraline 50 Mg Tab) 50 mg PO DAILY [facility] Labs: Laboratory Tests 12/19/20 12/19/20 12/19/20 Range/Units 12:18 12:30 12:30 WBC 6.5 (5.0-10.0) 10^3/uL RBC 5.22 (4.2-5.4) 10^6/uL Hgb 13.8 (12.0-16.0) g/dL Hct 43.8 (37.0-47.0) % MCV 83.9 D (80-100) fL MCH 26.4 L (27.0-34.0) pg MCHC 31.5 L (33.0-35.0) g/dL Plt Count 190 (150-450) 10^3/uL Neut % (Auto) 90.8 H (42.2-75.2) % Lymph % (Auto) 5.2 L (20.5-50.1) % [place] % (Auto) 3.8 (2-8) % Eos % (Auto) 0.0 L (1.0-3.0) % Baso % (Auto) 0.2 (0.0-1.0) % D-Dimer, Quantitative (0-400) ng/mL Sodium 136 (136-145) mmol/L Potassium 4.1 (3.5-5.1) mmol/L Chloride 100 (98-107) mmol/L Carbon Dioxide 24 (21-32) mmol/L Anion Gap 16.1 H (7-13) mEq/L BUN 15 (7-18) mg/dL Creatinine 1.05 H (0.55-1.02) mg/dL Est Cr Clr Drug Dosing 63.35 mL/min Estimated GFR (MDRD) 59 BUN/Creatinine Ratio 14.3 (No establ ref range) Glucose 145 H (70-99) mg/dL Calcium 8.0 L (8.5-10.1) mg/dL Total Bilirubin 0.5 (0.2-1.0) mg/dL AST 78 H (15-37) U/L ALT 114 H (14-59) U/L Alkaline Phosphatase 63 (46-116) U/L Troponin I < 0.017 (0.000-0.056) ng/mL Total Protein 6.8 (6.4-8.2) g/dL Albumin 2.9 L (3.4-5.0) g/dL Globulin 3.9 Albumin/Globulin Ratio 0.74 Urine Color (YELLOW) Urine Appearance (CLEAR) Urine pH (5.0-9.0) Ur Specific [place] (1.005-1.030) Urine Protein (NEGATIVE) Urine Glucose (UA) (NEGATIVE) Urine Ketones (NEGATIVE) Urine Occult Blood (NEGATIVE) Urine Nitrite (NEGATIVE) Urine Bilirubin (NEGATIVE) Urine Urobilinogen (0.2-1.0) mg/dL Ur Leukocyte Esterase (NEGATIVE) Urine RBC /HPF Urine WBC (0-5/HPF) /HPF Ur Epithelial Cells (NOT SEEN) /HPF Urine Bacteria (0-FEW/HPF) /HPF Urine Mucus (NOT SEEN) /LPF Urine HCG, Qual Influenza Type A RNA Negative (NEGATIVE) Influenza Type B RNA Negative (NEGATIVE) SARS-CoV-2 RNA (DAIN) Positive H (NEGATIVE) 12/19/20 12/19/20 12/19/20 Range/Units 12:30 13:07 13:07 WBC (5.0-10.0) 10^3/uL RBC (4.2-5.4) 10^6/uL Hgb (12.0-16.0) g/dL Hct (37.0-47.0) % MCV (80-100) fL MCH (27.0-34.0) pg MCHC (33.0-35.0) g/dL Plt Count (150-450) 10^3/uL Neut % (Auto) (42.2-75.2) % Lymph % (Auto) (20.5-50.1) % [place] % (Auto) (2-8) % Eos % (Auto) (1.0-3.0) % Baso % (Auto) (0.0-1.0) % D-Dimer, Quantitative 222 (0-400) ng/mL Sodium (136-145) mmol/L Potassium (3.5-5.1) mmol/L Chloride (98-107) mmol/L Carbon Dioxide (21-32) mmol/L Anion Gap (7-13) mEq/L BUN (7-18) mg/dL Creatinine (0.55-1.02) mg/dL Est Cr Clr Drug Dosing mL/min Estimated GFR (MDRD) BUN/Creatinine Ratio (No establ ref range) Glucose (70-99) mg/dL Calcium (8.5-10.1) mg/dL Total Bilirubin (0.2-1.0) mg/dL AST (15-37) U/L ALT (14-59) U/L Alkaline Phosphatase (46-116) U/L Troponin I (0.000-0.056) ng/mL Total Protein (6.4-8.2) g/dL Albumin (3.4-5.0) g/dL Globulin Albumin/Globulin Ratio Urine Color Guillermina (YELLOW) Urine Appearance Clear (CLEAR) Urine pH 6.5 (5.0-9.0) Ur Specific [place] 1.025 (1.005-1.030) Urine Protein 30 H (NEGATIVE) Urine Glucose (UA) Negative (NEGATIVE) Urine Ketones Negative (NEGATIVE) Urine Occult Blood Trace-lysed H (NEGATIVE) Urine Nitrite Negative (NEGATIVE) Urine Bilirubin Negative (NEGATIVE) Urine Urobilinogen 0.2 (0.2-1.0) mg/dL Ur Leukocyte Esterase Negative (NEGATIVE) Urine RBC 0-5 /HPF Urine WBC 5-10 H (0-5/HPF) /HPF Ur Epithelial Cells Many H (NOT SEEN) /HPF Urine Bacteria Few (0-FEW/HPF) /HPF Urine Mucus Few H (NOT SEEN) /LPF Urine HCG, Qual Negative Influenza Type A RNA (NEGATIVE) Influenza Type B RNA (NEGATIVE) SARS-CoV-2 RNA (DAIN) (NEGATIVE) Meds: Medications Generic Name Dose Route Start Last Admin Trade Name Freq PRN Reason Stop Dose Admin Dexamethasone 6 mg 12/19/20 17:45 12/19/20 18:09 Dexamethasone 4 Mg/Ml Sdv IVPUSH 6 mg DAILY MEGAN Administration Enoxaparin Sodium 40 mg 12/19/20 21:00 12/19/20 21:46 Enoxaparin 40 Mg/0.4 Ml Syringe SUBCUT 40 mg BID MEGAN Administration Remdesivir 100 mg/ Sodium 100 mls @ 100 mls/hr 12/20/20 18:00 Chloride IV 12/23/20 18:59 Q24H MEGAN Ibuprofen 400 mg 12/19/20 17:32 12/19/20 21:49 Ibuprofen 400 Mg Tab PO 400 mg Q6H PRN Administration Pain (mild 1-3) Labetalol HCl 200 mg 12/19/20 21:00 12/19/20 21:54 Labetalol 100 Mg Tab PO 200 mg TID MEGAN Administration Levothyroxine Sodium 150 mcg 12/20/20 06:00 12/20/20 06:33 Levothyroxine 100 Mcg Tab PO 150 mcg ACBREAKFAST MEGAN Administration Ondansetron HCl 4 mg 12/19/20 17:32 Ondansetron 4 Mg Tab.Dis PO Q4H PRN nausea, able to take PO Sertraline HCl 50 mg 12/20/20 09:00 Sertraline 50 Mg Tab PO DAILY MEGAN Discontinued Medications Generic Name Dose Route Start Last Admin Trade Name Hoangq PRN Reason Stop Dose Admin Enoxaparin Sodium 40 mg 12/20/20 09:00 Enoxaparin 40 Mg/0.4 Ml Syringe SUBCUT DAILY MEGAN Remdesivir 200 mg/ Sodium 250 mls @ 250 mls/hr 12/19/20 17:35 12/19/20 18:14 Chloride IV 12/19/20 18:34 250 mls/hr ONETIME ONE Administration - Radiology Interpretation Free Text/Narrative:: Chest x-ray: Scattered peripheral multi lobar interstitial lung densities consistent with Covid19 infection (pneumonia). See rad report. - Re-Assessments/Exams Free Text/Narrative Re-Assessment/Exam: 12/20/20 08:14 Patient requiring O2 to keep O2 sats above 90% at rest. Discussed patient case with Dr. Zaman who agreed to accept the patient for inpatient admission. Departure - Departure Time of Disposition: 15:31 Disposition: Admitted As Inpatient 68 Condition: Fair Clinical Impression: COVID-19, Hypoxia - Discharge Information *PRESCRIPTION DRUG MONITORING PROGRAM REVIEWED*: No *COPY OF PRESCRIPTION DRUG MONITORING REPORT IN PATIENT ZA: No Sepsis Event Note (ED) - Evaluation Sepsis Screening Result: No Definite Risk - My Orders Last 24 Hours: My Active Orders 12/19/20 12:00 Blood Culture x2 Reflex Set [OM.PC] Stat 12/19/20 12:30 CULTURE BLOOD [BC] Stat 12/19/20 12:35 CULTURE BLOOD [BC] Stat - Assessment/Plan Last 24 Hours: My Active Orders 12/19/20 12:00 Blood Culture x2 Reflex Set [OM.PC] Stat 12/19/20 12:30 CULTURE BLOOD [BC] Stat 12/19/20 12:35 CULTURE BLOOD [BC] Stat
[2020-12-19] MEDS ORDERED: Ondansetron 4 MG Tab.DIS PO PRN (17:32)
[2020-12-19] MEDS ORDERED: REMDESIVIR 200 MG in Sodium Chloride 0.9% 250 ML IV ONE (17:35)
[2020-12-19] MEDS: Dexamethasone 4 MG/ML SDV IVPUSH SCH (18:09)
--- NOTE | 2020-12-19 18:25 | PCM.HP ---
H&P History of Present Illness - General Date of Service: 12/19/20 Admit Problem/Dx: Admission Diagnosis/Problem Admission Diagnosis/Problem Shortness of breath - History of Present Illness Initial Comments - Free Text/Narative: 39F w/ pmh morbid obesity, gestational DM, HT, hypothyroidism, anxiety, depression p/w shortness of breath. Pt developed symptoms appx 7 days ago. She is coughing, nauseated, short of breath and suffers body aches, fevers and diarrhea. There are multiple family members who are similarly sick. Pt has not been vaccinated against COVID19 nor has any of the family. ER evaluation reveals patchy lung infiltrates. She is COVID19 positive. In the ER pt desaturated to 88% on room air. Generalized Pain Score (Numeric/FACES): 4 - Related Data Allergies/Adverse Reactions: Allergies Allergy/AdvReac Type Severity Reaction Status Date / Time latex Allergy Itching Verified 12/19/20 10:59 Home Medications: Home Meds Labetalol HCl [Labetalol] 200 mg PO TID 11/05/15 [History] Levothyroxine [Synthroid] 150 mcg PO ACBREAKFAST 11/05/15 [History] Ascorbic Acid [Vitamin C] 500 mg PO DAILY 12/19/20 [History] Cholecalciferol (Vitamin D3) [Vitamin D3] 2,000 unit PO DAILY 12/19/20 [History] Sertraline [Zoloft] 50 mg PO DAILY 12/19/20 [History] levoFLOXacin [Levaquin] 500 mg PO DAILY 12/19/20 [History] predniSONE [Prednisone] 40 mg PO DAILY 12/19/20 [History] Past Medical History HEENT History: Reports: None Cardiovascular History: Reports: Hypertension, Other (See Below) Other Cardiovascular History: gestational and chronic Respiratory History: Reports: Asthma Gastrointestinal History: Reports: GERD Genitourinary History: Reports: None [employer] History: Reports: , Other (See Below) 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: LEEP procedure, 5 natural births, 2 miscarriages Musculoskeletal History: Reports: None Neurological History: Reports: None Psychiatric History: Reports: Anxiety, Depression Endocrine/Metabolic History: Reports: Hypothyroidism Hematologic History: Reports: None Immunologic History: Reports: None Oncologic (Cancer) History: Reports: None Dermatologic History: Reports: None - Infectious Disease History Infectious Disease History: Reports: None - Past Surgical History Head Surgeries/Procedures: Reports: None HEENT Surgical History: Reports: Tonsillectomy Social & Family History - Family History Family Medical History: No Pertinent Family History - Tobacco Use Tobacco Use Status *Q: Never Tobacco User Second Hand Smoke Exposure: No - Caffeine Use Caffeine Use: Reports: Coffee, Soda - Recreational Drug Use Recreational Drug Use: No - Living Situation & Occupation Living situation: Reports: (lives with William and 2 children, daughter and son), with Family (Lives with and 2 children.) H&P Review of Systems - Review of Systems: Review Of Systems: See Below General: Reports: Fever, Chills, Malaise, Weakness, Fatigue, Decreased Appetite HEENT: Reports: Headaches Pulmonary: Reports: Shortness of Breath, Cough. Denies: Wheezing Cardiovascular: Denies: Chest Pain, Edema Gastrointestinal: Reports: Diarrhea, Nausea Genitourinary: Denies: Dysuria Musculoskeletal: Denies: Neck Pain Skin: Denies: Jaundice Psychiatric: Denies: Confusion, Depression Neurological: Reports: Dizziness. Denies: Seizure Hematologic/Lymphatic: Denies: Easy Bleeding Exam - Exam Exam: See Below - Vital Signs Vital Signs: Last Vital Signs Temp 98.2 F 12/19/20 15:59 Pulse 80 12/19/20 15:59 Resp 22 H 12/19/20 15:59 BP 122/59 L 12/19/20 15:59 Pulse Ox 94 L 12/19/20 16:03 Weight: 253 lb 14.4 oz - Exam Quality Assessment: Supplemental Oxygen General: Alert, Oriented Physical Exam Comments:: further exam deferred 09/02 COVID19 - Patient Data Lab Results Last 24 hrs: Laboratory Results - last 24 hr 12/19/20 12/19/20 12/19/20 Range/Units 12:18 12:30 12:30 WBC 6.5 (5.0-10.0) 10^3/uL RBC 5.22 (4.2-5.4) 10^6/uL Hgb 13.8 (12.0-16.0) g/dL Hct 43.8 (37.0-47.0) % MCV 83.9 D (80-100) fL MCH 26.4 L (27.0-34.0) pg MCHC 31.5 L (33.0-35.0) g/dL Plt Count 190 (150-450) 10^3/uL Neut % (Auto) 90.8 H (42.2-75.2) % Lymph % (Auto) 5.2 L (20.5-50.1) % [place] % (Auto) 3.8 (2-8) % Eos % (Auto) 0.0 L (1.0-3.0) % Baso % (Auto) 0.2 (0.0-1.0) % D-Dimer, Quantitative (0-400) ng/mL Sodium 136 (136-145) mmol/L Potassium 4.1 (3.5-5.1) mmol/L Chloride 100 (98-107) mmol/L Carbon Dioxide 24 (21-32) mmol/L Anion Gap 16.1 H (7-13) mEq/L BUN 15 (7-18) mg/dL Creatinine 1.05 H (0.55-1.02) mg/dL Est Cr Clr Drug Dosing 63.35 mL/min Estimated GFR (MDRD) 59 BUN/Creatinine Ratio 14.3 (No establ ref range) Glucose 145 H (70-99) mg/dL Calcium 8.0 L (8.5-10.1) mg/dL Total Bilirubin 0.5 (0.2-1.0) mg/dL AST 78 H (15-37) U/L ALT 114 H (14-59) U/L Alkaline Phosphatase 63 (46-116) U/L Troponin I < 0.017 (0.000-0.056) ng/mL Total Protein 6.8 (6.4-8.2) g/dL Albumin 2.9 L (3.4-5.0) g/dL Globulin 3.9 Albumin/Globulin Ratio 0.74 Urine Color (YELLOW) Urine Appearance (CLEAR) Urine pH (5.0-9.0) Ur Specific [place] (1.005-1.030) Urine Protein (NEGATIVE) Urine Glucose (UA) (NEGATIVE) Urine Ketones (NEGATIVE) Urine Occult Blood (NEGATIVE) Urine Nitrite (NEGATIVE) Urine Bilirubin (NEGATIVE) Urine Urobilinogen (0.2-1.0) mg/dL Ur Leukocyte Esterase (NEGATIVE) Urine RBC /HPF Urine WBC (0-5/HPF) /HPF Ur Epithelial Cells (NOT SEEN) /HPF Urine Bacteria (0-FEW/HPF) /HPF Urine Mucus (NOT SEEN) /LPF Urine HCG, Qual Influenza Type A RNA Negative (NEGATIVE) Influenza Type B RNA Negative (NEGATIVE) SARS-CoV-2 RNA (DAIN) Positive H (NEGATIVE) 12/19/20 12/19/20 12/19/20 Range/Units 12:30 13:07 13:07 WBC (5.0-10.0) 10^3/uL RBC (4.2-5.4) 10^6/uL Hgb (12.0-16.0) g/dL Hct (37.0-47.0) % MCV (80-100) fL MCH (27.0-34.0) pg MCHC (33.0-35.0) g/dL Plt Count (150-450) 10^3/uL Neut % (Auto) (42.2-75.2) % Lymph % (Auto) (20.5-50.1) % [place] % (Auto) (2-8) % Eos % (Auto) (1.0-3.0) % Baso % (Auto) (0.0-1.0) % D-Dimer, Quantitative 222 (0-400) ng/mL Sodium (136-145) mmol/L Potassium (3.5-5.1) mmol/L Chloride (98-107) mmol/L Carbon Dioxide (21-32) mmol/L Anion Gap (7-13) mEq/L BUN (7-18) mg/dL Creatinine (0.55-1.02) mg/dL Est Cr Clr Drug Dosing mL/min Estimated GFR (MDRD) BUN/Creatinine Ratio (No establ ref range) Glucose (70-99) mg/dL Calcium (8.5-10.1) mg/dL Total Bilirubin (0.2-1.0) mg/dL AST (15-37) U/L ALT (14-59) U/L Alkaline Phosphatase (46-116) U/L Troponin I (0.000-0.056) ng/mL Total Protein (6.4-8.2) g/dL Albumin (3.4-5.0) g/dL Globulin Albumin/Globulin Ratio Urine Color Guillermina (YELLOW) Urine Appearance Clear (CLEAR) Urine pH 6.5 (5.0-9.0) Ur Specific [place] 1.025 (1.005-1.030) Urine Protein 30 H (NEGATIVE) Urine Glucose (UA) Negative (NEGATIVE) Urine Ketones Negative (NEGATIVE) Urine Occult Blood Trace-lysed H (NEGATIVE) Urine Nitrite Negative (NEGATIVE) Urine Bilirubin Negative (NEGATIVE) Urine Urobilinogen 0.2 (0.2-1.0) mg/dL Ur Leukocyte Esterase Negative (NEGATIVE) Urine RBC 0-5 /HPF Urine WBC 5-10 H (0-5/HPF) /HPF Ur Epithelial Cells Many H (NOT SEEN) /HPF Urine Bacteria Few (0-FEW/HPF) /HPF Urine Mucus Few H (NOT SEEN) /LPF Urine HCG, Qual Negative Influenza Type A RNA (NEGATIVE) Influenza Type B RNA (NEGATIVE) SARS-CoV-2 RNA (DAIN) (NEGATIVE) Result Diagrams: 12/19/20 12:30 12/19/20 12:30 Problem List Initiated/Reviewed/Updated: Yes Orders Last 24hrs: Active Orders 24 hr Category Date Time Status Admission Diagnosis [ADT] Routine ADT 12/19/20 15:17 Ordered Admission Status [Patient Status] [ADT] Routine ADT 12/19/20 15:17 Active Patient Status [ADT] Routine ADT 12/19/20 17:32 Active Oxygen Therapy [RC] PRN Care 12/19/20 17:32 Active Up ad Nikki [RC] .PRN Care 12/19/20 17:32 Active VTE/DVT Education [RC] PER UNIT ROUTINE Care 12/19/20 17:32 Active Vital Signs [RC] Q4H Care 12/19/20 17:32 Active Regular Diet [DIET] Diet 12/20/20 Breakfast Active CULTURE BLOOD [BC] Stat Lab 12/19/20 12:30 Received CULTURE BLOOD [BC] Stat Lab 12/19/20 12:35 Received Enoxaparin [Lovenox] Med 12/19/20 21:00 Active 40 mg SUBCUT BID Ibuprofen [Motrin] Med 12/19/20 17:32 Active 400 mg PO Q6H PRN Labetalol [Normodyne] Med 12/19/20 21:00 Active 200 mg PO TID Levothyroxine [Synthroid] Med 12/20/20 06:00 Active 150 mcg PO ACBREAKFAST Ondansetron [Zofran ODT] Med 12/19/20 17:32 Active 4 mg PO Q4H PRN Remdesivir 100 mg Med 12/20/20 18:00 Active Sodium Chloride 0.9% [Normal Saline] 100 ml IV Q24H Remdesivir 200 mg Med 12/19/20 17:35 Active Sodium Chloride 0.9% [Normal Saline] 250 ml IV ONETIME Sertraline [Zoloft] Med 12/20/20 09:00 Active 50 mg PO DAILY dexAMETHasone [Decadron] Med 12/19/20 17:45 Active 6 mg IVPUSH DAILY Blood Culture x2 Reflex Set [OM.PC] Stat Oth 12/19/20 12:00 Ordered Resuscitation Status Routine Resus Stat 12/19/20 17:32 Ordered Medication Orders Dexamethasone (Dexamethasone 4 Mg/Ml Sdv) 6 mg IVPUSH DAILY [facility] Last Admin: 12/19/20 18:09 Dose: 6 mg Documented by: DEVIKA Enoxaparin Sodium (Enoxaparin 40 Mg/0.4 Ml Syringe) 40 mg SUBCUT BID [facility] Remdesivir 200 mg/ Sodium (Chloride) 250 mls @ 250 mls/hr IV ONETIME ONE Stop: 12/19/20 18:34 Remdesivir 100 mg/ Sodium (Chloride) 100 mls @ 100 mls/hr IV Q24H [facility] Stop: 12/23/20 18:59 Ibuprofen (Ibuprofen 400 Mg Tab) 400 mg PO Q6H PRN PRN Reason: Pain (mild 1-3) Labetalol HCl (Labetalol 100 Mg Tab) 200 mg PO TID [facility] Levothyroxine Sodium (Levothyroxine 100 Mcg Tab) 150 mcg PO ACBREAKFAST [facility] Ondansetron HCl (Ondansetron 4 Mg Tab.Dis) 4 mg PO Q4H PRN PRN Reason: nausea, able to take PO Sertraline HCl (Sertraline 50 Mg Tab) 50 mg PO DAILY [facility] Assessment/Plan Comment:: #acute hypoxic respiratory failure 2/2 COVID19 pneumonia - start dexamethasone, remdesivir, o2 supp #HT - c/w labetalol #hypothyroidism / anxiety / depression - c/w home meds PPX - bariatric dose LMWH
[2020-12-19] MEDS: Enoxaparin 40 MG/0.4 ML Syringe SUBCUT SCH (21:46)
[2020-12-19] MEDS: Ibuprofen 400 MG Tab PO PRN (21:49)
[2020-12-19] MEDS: Labetalol 100 MG Tab PO SCH (21:54)
[2020-12-20] MEDS: Levothyroxine 100 MCG Tab PO SCH (06:33)
[2020-12-20 06:54] LABS: ANION GAP 12.3 mEq/L (7-13); CHLORIDE,CL 104 mmol/L (98-107); SODIUM,NA 140 mmol/L (136-145)
[2020-12-20] MEDS ORDERED: Enoxaparin 40 MG/0.4 ML Syringe SUBCUT SCH (09:00)
[2020-12-20] MEDS: Labetalol 100 MG Tab PO SCH ×3 (09:17→21:16)
[2020-12-20] MEDS: Dexamethasone 4 MG/ML SDV IVPUSH SCH (09:21)
[2020-12-20] MEDS: Enoxaparin 40 MG/0.4 ML Syringe SUBCUT SCH ×2 (09:21→21:15)
[2020-12-20] MEDS: Sertraline 50 MG Tab PO SCH (09:24)
--- NOTE | 2020-12-20 10:24 | PCM.PN ---
- General Info Date of Service: 12/20/20 Subjective Update: Desaturated w/ ambulation. At rest sats stable mid 90s on 2-3L NC. Otherwise feels improved. Still w/ lots of diarrhea. Eating. - Patient Data Vitals - Most Recent: Last Vital Signs Temp 100.2 F 12/20/20 08:00 Pulse 78 12/20/20 09:17 Resp 22 H 12/20/20 08:00 BP 121/61 12/20/20 09:17 Pulse Ox 94 L 12/20/20 08:00 Weight - Most Recent: 253 lb 14.4 oz I&O - Last 24 Hours: Intake & Output 12/19/20 12/20/20 12/20/20 22:59 06:59 14:59 Intake Total 100 Balance 100 Lab Results Last 24 Hours: Laboratory Results - last 24 hr 12/19/20 12/19/20 12/19/20 Range/Units 12:18 12:30 12:30 WBC 6.5 (5.0-10.0) 10^3/uL RBC 5.22 (4.2-5.4) 10^6/uL Hgb 13.8 (12.0-16.0) g/dL Hct 43.8 (37.0-47.0) % MCV 83.9 D (80-100) fL MCH 26.4 L (27.0-34.0) pg MCHC 31.5 L (33.0-35.0) g/dL Plt Count 190 (150-450) 10^3/uL Neut % (Auto) 90.8 H (42.2-75.2) % Lymph % (Auto) 5.2 L (20.5-50.1) % [place] % (Auto) 3.8 (2-8) % Eos % (Auto) 0.0 L (1.0-3.0) % Baso % (Auto) 0.2 (0.0-1.0) % D-Dimer, Quantitative (0-400) ng/mL Sodium 136 (136-145) mmol/L Potassium 4.1 (3.5-5.1) mmol/L Chloride 100 (98-107) mmol/L Carbon Dioxide 24 (21-32) mmol/L Anion Gap 16.1 H (7-13) mEq/L BUN 15 (7-18) mg/dL Creatinine 1.05 H (0.55-1.02) mg/dL Est Cr Clr Drug Dosing 63.35 mL/min Estimated GFR (MDRD) 59 BUN/Creatinine Ratio 14.3 (No establ ref range) Glucose 145 H (70-99) mg/dL Calcium 8.0 L (8.5-10.1) mg/dL Total Bilirubin 0.5 (0.2-1.0) mg/dL AST 78 H (15-37) U/L ALT 114 H (14-59) U/L Alkaline Phosphatase 63 (46-116) U/L Troponin I < 0.017 (0.000-0.056) ng/mL Total Protein 6.8 (6.4-8.2) g/dL Albumin 2.9 L (3.4-5.0) g/dL Globulin 3.9 Albumin/Globulin Ratio 0.74 Urine Color (YELLOW) Urine Appearance (CLEAR) Urine pH (5.0-9.0) Ur Specific [place] (1.005-1.030) Urine Protein (NEGATIVE) Urine Glucose (UA) (NEGATIVE) Urine Ketones (NEGATIVE) Urine Occult Blood (NEGATIVE) Urine Nitrite (NEGATIVE) Urine Bilirubin (NEGATIVE) Urine Urobilinogen (0.2-1.0) mg/dL Ur Leukocyte Esterase (NEGATIVE) Urine RBC /HPF Urine WBC (0-5/HPF) /HPF Ur Epithelial Cells (NOT SEEN) /HPF Urine Bacteria (0-FEW/HPF) /HPF Urine Mucus (NOT SEEN) /LPF Urine HCG, Qual Influenza Type A RNA Negative (NEGATIVE) Influenza Type B RNA Negative (NEGATIVE) SARS-CoV-2 RNA (DAIN) Positive H (NEGATIVE) 12/19/20 12/19/20 12/19/20 Range/Units 12:30 13:07 13:07 WBC (5.0-10.0) 10^3/uL RBC (4.2-5.4) 10^6/uL Hgb (12.0-16.0) g/dL Hct (37.0-47.0) % MCV (80-100) fL MCH (27.0-34.0) pg MCHC (33.0-35.0) g/dL Plt Count (150-450) 10^3/uL Neut % (Auto) (42.2-75.2) % Lymph % (Auto) (20.5-50.1) % [place] % (Auto) (2-8) % Eos % (Auto) (1.0-3.0) % Baso % (Auto) (0.0-1.0) % D-Dimer, Quantitative 222 (0-400) ng/mL Sodium (136-145) mmol/L Potassium (3.5-5.1) mmol/L Chloride (98-107) mmol/L Carbon Dioxide (21-32) mmol/L Anion Gap (7-13) mEq/L BUN (7-18) mg/dL Creatinine (0.55-1.02) mg/dL Est Cr Clr Drug Dosing mL/min Estimated GFR (MDRD) BUN/Creatinine Ratio (No establ ref range) Glucose (70-99) mg/dL Calcium (8.5-10.1) mg/dL Total Bilirubin (0.2-1.0) mg/dL AST (15-37) U/L ALT (14-59) U/L Alkaline Phosphatase (46-116) U/L Troponin I (0.000-0.056) ng/mL Total Protein (6.4-8.2) g/dL Albumin (3.4-5.0) g/dL Globulin Albumin/Globulin Ratio Urine Color Guillermina (YELLOW) Urine Appearance Clear (CLEAR) Urine pH 6.5 (5.0-9.0) Ur Specific [place] 1.025 (1.005-1.030) Urine Protein 30 H (NEGATIVE) Urine Glucose (UA) Negative (NEGATIVE) Urine Ketones Negative (NEGATIVE) Urine Occult Blood Trace-lysed H (NEGATIVE) Urine Nitrite Negative (NEGATIVE) Urine Bilirubin Negative (NEGATIVE) Urine Urobilinogen 0.2 (0.2-1.0) mg/dL Ur Leukocyte Esterase Negative (NEGATIVE) Urine RBC 0-5 /HPF Urine WBC 5-10 H (0-5/HPF) /HPF Ur Epithelial Cells Many H (NOT SEEN) /HPF Urine Bacteria Few (0-FEW/HPF) /HPF Urine Mucus Few H (NOT SEEN) /LPF Urine HCG, Qual Negative Influenza Type A RNA (NEGATIVE) Influenza Type B RNA (NEGATIVE) SARS-CoV-2 RNA (DAIN) (NEGATIVE) 12/20/20 Range/Units 06:25 WBC (5.0-10.0) 10^3/uL RBC (4.2-5.4) 10^6/uL Hgb (12.0-16.0) g/dL Hct (37.0-47.0) % MCV (80-100) fL MCH (27.0-34.0) pg MCHC (33.0-35.0) g/dL Plt Count (150-450) 10^3/uL Neut % (Auto) (42.2-75.2) % Lymph % (Auto) (20.5-50.1) % [place] % (Auto) (2-8) % Eos % (Auto) (1.0-3.0) % Baso % (Auto) (0.0-1.0) % D-Dimer, Quantitative (0-400) ng/mL Sodium 140 (136-145) mmol/L Potassium 4.3 (3.5-5.1) mmol/L Chloride 104 (98-107) mmol/L Carbon Dioxide 28 (21-32) mmol/L Anion Gap 12.3 (7-13) mEq/L BUN 15 (7-18) mg/dL Creatinine 0.83 (0.55-1.02) mg/dL Est Cr Clr Drug Dosing 80.14 mL/min Estimated GFR (MDRD) > 60 BUN/Creatinine Ratio 18.1 (No establ ref range) Glucose 151 H (70-99) mg/dL Calcium 8.2 L (8.5-10.1) mg/dL Total Bilirubin 0.4 (0.2-1.0) mg/dL AST 43 H (15-37) U/L ALT 89 H (14-59) U/L Alkaline Phosphatase 59 (46-116) U/L Troponin I (0.000-0.056) ng/mL Total Protein 6.9 (6.4-8.2) g/dL Albumin 2.9 L (3.4-5.0) g/dL Globulin 4.0 Albumin/Globulin Ratio 0.73 Urine Color (YELLOW) Urine Appearance (CLEAR) Urine pH (5.0-9.0) Ur Specific [place] (1.005-1.030) Urine Protein (NEGATIVE) Urine Glucose (UA) (NEGATIVE) Urine Ketones (NEGATIVE) Urine Occult Blood (NEGATIVE) Urine Nitrite (NEGATIVE) Urine Bilirubin (NEGATIVE) Urine Urobilinogen (0.2-1.0) mg/dL Ur Leukocyte Esterase (NEGATIVE) Urine RBC /HPF Urine WBC (0-5/HPF) /HPF Ur Epithelial Cells (NOT SEEN) /HPF Urine Bacteria (0-FEW/HPF) /HPF Urine Mucus (NOT SEEN) /LPF Urine HCG, Qual Influenza Type A RNA (NEGATIVE) Influenza Type B RNA (NEGATIVE) SARS-CoV-2 RNA (DAIN) (NEGATIVE) Med Orders - Current: Current Medications Dexamethasone (Dexamethasone 4 Mg/Ml Sdv) 6 mg IVPUSH DAILY [facility] Last Admin: 12/20/20 09:21 Dose: 6 mg Documented by: Enoxaparin Sodium (Enoxaparin 40 Mg/0.4 Ml Syringe) 40 mg SUBCUT BID [facility] Last Admin: 12/20/20 09:21 Dose: 40 mg Documented by: Remdesivir 100 mg/ Sodium (Chloride) 100 mls @ 100 mls/hr IV Q24H [facility] Stop: 12/23/20 18:59 Ibuprofen (Ibuprofen 400 Mg Tab) 400 mg PO Q6H PRN PRN Reason: Pain (mild 1-3) Last Admin: 12/19/20 21:49 Dose: 400 mg Documented by: Labetalol HCl (Labetalol 100 Mg Tab) 200 mg PO TID [facility] Last Admin: 12/20/20 09:17 Dose: 200 mg Documented by: Levothyroxine Sodium (Levothyroxine 100 Mcg Tab) 150 mcg PO ACBREAKFAST [facility] Last Admin: 12/20/20 06:33 Dose: 150 mcg Documented by: Ondansetron HCl (Ondansetron 4 Mg Tab.Dis) 4 mg PO Q4H PRN PRN Reason: nausea, able to take PO Sertraline HCl (Sertraline 50 Mg Tab) 50 mg PO DAILY [facility] Last Admin: 12/20/20 09:24 Dose: 50 mg Documented by: Discontinued Medications Enoxaparin Sodium (Enoxaparin 40 Mg/0.4 Ml Syringe) 40 mg SUBCUT DAILY [facility] Remdesivir 200 mg/ Sodium (Chloride) 250 mls @ 250 mls/hr IV ONETIME ONE Stop: 12/19/20 18:34 Last Admin: 12/19/20 18:14 Dose: 250 mls/hr Documented by: - Exam Quality Assessment: Supplemental Oxygen General: Alert, Oriented Lungs: Normal Respiratory Effort Physical Findings Comments:: Further exam deferred due to COVID19 - Patient Data Lab Results Last 24 hrs: Laboratory Results - last 24 hr 12/19/20 12/19/20 12/19/20 Range/Units 12:18 12:30 12:30 WBC 6.5 (5.0-10.0) 10^3/uL RBC 5.22 (4.2-5.4) 10^6/uL Hgb 13.8 (12.0-16.0) g/dL Hct 43.8 (37.0-47.0) % MCV 83.9 D (80-100) fL MCH 26.4 L (27.0-34.0) pg MCHC 31.5 L (33.0-35.0) g/dL Plt Count 190 (150-450) 10^3/uL Neut % (Auto) 90.8 H (42.2-75.2) % Lymph % (Auto) 5.2 L (20.5-50.1) % [place] % (Auto) 3.8 (2-8) % Eos % (Auto) 0.0 L (1.0-3.0) % Baso % (Auto) 0.2 (0.0-1.0) % D-Dimer, Quantitative (0-400) ng/mL Sodium 136 (136-145) mmol/L Potassium 4.1 (3.5-5.1) mmol/L Chloride 100 (98-107) mmol/L Carbon Dioxide 24 (21-32) mmol/L Anion Gap 16.1 H (7-13) mEq/L BUN 15 (7-18) mg/dL Creatinine 1.05 H (0.55-1.02) mg/dL Est Cr Clr Drug Dosing 63.35 mL/min Estimated GFR (MDRD) 59 BUN/Creatinine Ratio 14.3 (No establ ref range) Glucose 145 H (70-99) mg/dL Calcium 8.0 L (8.5-10.1) mg/dL Total Bilirubin 0.5 (0.2-1.0) mg/dL AST 78 H (15-37) U/L ALT 114 H (14-59) U/L Alkaline Phosphatase 63 (46-116) U/L Troponin I < 0.017 (0.000-0.056) ng/mL Total Protein 6.8 (6.4-8.2) g/dL Albumin 2.9 L (3.4-5.0) g/dL Globulin 3.9 Albumin/Globulin Ratio 0.74 Urine Color (YELLOW) Urine Appearance (CLEAR) Urine pH (5.0-9.0) Ur Specific [place] (1.005-1.030) Urine Protein (NEGATIVE) Urine Glucose (UA) (NEGATIVE) Urine Ketones (NEGATIVE) Urine Occult Blood (NEGATIVE) Urine Nitrite (NEGATIVE) Urine Bilirubin (NEGATIVE) Urine Urobilinogen (0.2-1.0) mg/dL Ur Leukocyte Esterase (NEGATIVE) Urine RBC /HPF Urine WBC (0-5/HPF) /HPF Ur Epithelial Cells (NOT SEEN) /HPF Urine Bacteria (0-FEW/HPF) /HPF Urine Mucus (NOT SEEN) /LPF Urine HCG, Qual Influenza Type A RNA Negative (NEGATIVE) Influenza Type B RNA Negative (NEGATIVE) SARS-CoV-2 RNA (DAIN) Positive H (NEGATIVE) 12/19/20 12/19/20 12/19/20 Range/Units 12:30 13:07 13:07 WBC (5.0-10.0) 10^3/uL RBC (4.2-5.4) 10^6/uL Hgb (12.0-16.0) g/dL Hct (37.0-47.0) % MCV (80-100) fL MCH (27.0-34.0) pg MCHC (33.0-35.0) g/dL Plt Count (150-450) 10^3/uL Neut % (Auto) (42.2-75.2) % Lymph % (Auto) (20.5-50.1) % [place] % (Auto) (2-8) % Eos % (Auto) (1.0-3.0) % Baso % (Auto) (0.0-1.0) % D-Dimer, Quantitative 222 (0-400) ng/mL Sodium (136-145) mmol/L Potassium (3.5-5.1) mmol/L Chloride (98-107) mmol/L Carbon Dioxide (21-32) mmol/L Anion Gap (7-13) mEq/L BUN (7-18) mg/dL Creatinine (0.55-1.02) mg/dL Est Cr Clr Drug Dosing mL/min Estimated GFR (MDRD) BUN/Creatinine Ratio (No establ ref range) Glucose (70-99) mg/dL Calcium (8.5-10.1) mg/dL Total Bilirubin (0.2-1.0) mg/dL AST (15-37) U/L ALT (14-59) U/L Alkaline Phosphatase (46-116) U/L Troponin I (0.000-0.056) ng/mL Total Protein (6.4-8.2) g/dL Albumin (3.4-5.0) g/dL Globulin Albumin/Globulin Ratio Urine Color Guillermina (YELLOW) Urine Appearance Clear (CLEAR) Urine pH 6.5 (5.0-9.0) Ur Specific [place] 1.025 (1.005-1.030) Urine Protein 30 H (NEGATIVE) Urine Glucose (UA) Negative (NEGATIVE) Urine Ketones Negative (NEGATIVE) Urine Occult Blood Trace-lysed H (NEGATIVE) Urine Nitrite Negative (NEGATIVE) Urine Bilirubin Negative (NEGATIVE) Urine Urobilinogen 0.2 (0.2-1.0) mg/dL Ur Leukocyte Esterase Negative (NEGATIVE) Urine RBC 0-5 /HPF Urine WBC 5-10 H (0-5/HPF) /HPF Ur Epithelial Cells Many H (NOT SEEN) /HPF Urine Bacteria Few (0-FEW/HPF) /HPF Urine Mucus Few H (NOT SEEN) /LPF Urine HCG, Qual Negative Influenza Type A RNA (NEGATIVE) Influenza Type B RNA (NEGATIVE) SARS-CoV-2 RNA (DAIN) (NEGATIVE) 12/20/20 Range/Units 06:25 WBC (5.0-10.0) 10^3/uL RBC (4.2-5.4) 10^6/uL Hgb (12.0-16.0) g/dL Hct (37.0-47.0) % MCV (80-100) fL MCH (27.0-34.0) pg MCHC (33.0-35.0) g/dL Plt Count (150-450) 10^3/uL Neut % (Auto) (42.2-75.2) % Lymph % (Auto) (20.5-50.1) % Winn % (Auto) (2-8) % Eos % (Auto) (1.0-3.0) % Baso % (Auto) (0.0-1.0) % D-Dimer, Quantitative (0-400) ng/mL Sodium 140 (136-145) mmol/L Potassium 4.3 (3.5-5.1) mmol/L Chloride 104 (98-107) mmol/L Carbon Dioxide 28 (21-32) mmol/L Anion Gap 12.3 (7-13) mEq/L BUN 15 (7-18) mg/dL Creatinine 0.83 (0.55-1.02) mg/dL Est Cr Clr Drug Dosing 80.14 mL/min Estimated GFR (MDRD) > 60 BUN/Creatinine Ratio 18.1 (No establ ref range) Glucose 151 H (70-99) mg/dL Calcium 8.2 L (8.5-10.1) mg/dL Total Bilirubin 0.4 (0.2-1.0) mg/dL AST 43 H (15-37) U/L ALT 89 H (14-59) U/L Alkaline Phosphatase 59 (46-116) U/L Troponin I (0.000-0.056) ng/mL Total Protein 6.9 (6.4-8.2) g/dL Albumin 2.9 L (3.4-5.0) g/dL Globulin 4.0 Albumin/Globulin Ratio 0.73 Urine Color (YELLOW) Urine Appearance (CLEAR) Urine pH (5.0-9.0) Ur Specific Olive (1.005-1.030) Urine Protein (NEGATIVE) Urine Glucose (UA) (NEGATIVE) Urine Ketones (NEGATIVE) Urine Occult Blood (NEGATIVE) Urine Nitrite (NEGATIVE) Urine Bilirubin (NEGATIVE) Urine Urobilinogen (0.2-1.0) mg/dL Ur Leukocyte Esterase (NEGATIVE) Urine RBC /HPF Urine WBC (0-5/HPF) /HPF Ur Epithelial Cells (NOT SEEN) /HPF Urine Bacteria (0-FEW/HPF) /HPF Urine Mucus (NOT SEEN) /LPF Urine HCG, Qual Influenza Type A RNA (NEGATIVE) Influenza Type B RNA (NEGATIVE) SARS-CoV-2 RNA (DAIN) (NEGATIVE) Result Diagrams: 12/19/20 12:30 12/20/20 06:25 Sepsis Event Note - Evaluation Sepsis Screening Result: No Definite Risk - Focused Exam Vital Signs: Vital Signs Temp Pulse Pulse Resp BP BP Pulse Ox 12/20/20 09:17 78 121/61 12/20/20 08:00 100.2 F 81 22 H 128/61 94 L 12/20/20 03:46 97.4 F 54 L 22 H 137/93 H 91 L 12/20/20 00:00 97.4 F 78 20 137/69 93 L - Problem List Review Problem List Initiated/Reviewed/Updated: Yes - My Orders Last 24 Hours: My Active Orders 12/19/20 17:32 Patient Status [ADT] Routine Oxygen Therapy [RC] PRN Up ad Nikki [RC] .PRN VTE/DVT Education [RC] Vital Signs [RC] 00,04,08,12,16,20 Ibuprofen [Motrin] 400 mg PO Q6H PRN Ondansetron [Zofran ODT] 4 mg PO Q4H PRN Resuscitation Status Routine 12/19/20 17:45 dexAMETHasone [Decadron] 6 mg IVPUSH DAILY 12/19/20 21:00 Enoxaparin [Lovenox] 40 mg SUBCUT BID Labetalol [Normodyne] 200 mg PO TID 12/20/20 06:00 Levothyroxine [Synthroid] 150 mcg PO ACBREAKFAST 12/20/20 Breakfast Regular Diet [DIET] 12/20/20 09:00 Sertraline [Zoloft] 50 mg PO DAILY 12/20/20 18:00 Remdesivir 100 mg Sodium Chloride 0.9% [Normal Saline] 100 ml IV Q24H 12/21/20 05:11 CMP [COMPREHENSIVE METABOLIC PN,CMP] [CHEM] AM - Plan Plan:: #acute hypoxic respiratory failure 2/2 COVID19 pneumonia - c/w dexamethasone, remdesivir, o2 supp #HT - c/w labetalol #hypothyroidism / anxiety / depression - c/w home meds PPX - bariatric dose LMWH
[2020-12-20] MEDS: REMDESIVIR 100 MG in Sodium Chloride 0.9% 100 ML IV SCH (17:31)
[2020-12-20] MEDS: Ibuprofen 400 MG Tab PO PRN (21:19)
[2020-12-21] MEDS: Levothyroxine 100 MCG Tab PO SCH (06:18)
[2020-12-21 07:21] LABS: ANION GAP 15.3 mEq/L (7-13); CHLORIDE,CL 105 mmol/L (98-107); SODIUM,NA 143 mmol/L (136-145)
[2020-12-21] MEDS: Labetalol 100 MG Tab PO SCH ×3 (08:46→21:02)
[2020-12-21] MEDS: Dexamethasone 4 MG/ML SDV IVPUSH SCH (08:47)
[2020-12-21] MEDS: Enoxaparin 40 MG/0.4 ML Syringe SUBCUT SCH ×2 (08:47→21:02)
[2020-12-21] MEDS: Sertraline 50 MG Tab PO SCH (08:47)
--- NOTE | 2020-12-21 12:33 | PCM.PN ---
- General Info Date of Service: 12/21/20 Subjective Update: Clinically unchanged. - Patient Data Vitals - Most Recent: Last Vital Signs Temp 98.0 F 12/21/20 08:00 Pulse 69 12/21/20 08:46 Resp 24 H 12/21/20 08:00 BP 122/68 12/21/20 08:46 Pulse Ox 95 12/21/20 08:00 Weight - Most Recent: 253 lb 14.4 oz I&O - Last 24 Hours: Intake & Output 12/20/20 12/21/20 12/21/20 22:59 06:59 14:59 Intake Total 3820 120 625 Balance 3820 120 625 Lab Results Last 24 Hours: Laboratory Results - last 24 hr 12/21/20 Range/Units 06:28 Sodium 143 (136-145) mmol/L Potassium 4.3 (3.5-5.1) mmol/L Chloride 105 (98-107) mmol/L Carbon Dioxide 27 (21-32) mmol/L Anion Gap 15.3 H (7-13) mEq/L BUN 15 (7-18) mg/dL Creatinine 0.82 (0.55-1.02) mg/dL Est Cr Clr Drug Dosing 81.11 mL/min Estimated GFR (MDRD) > 60 BUN/Creatinine Ratio 18.3 (No establ ref range) Glucose 144 H (70-99) mg/dL Calcium 8.2 L (8.5-10.1) mg/dL Total Bilirubin 0.4 (0.2-1.0) mg/dL AST 30 (15-37) U/L ALT 67 H (14-59) U/L Alkaline Phosphatase 58 (46-116) U/L Total Protein 6.4 (6.4-8.2) g/dL Albumin 2.9 L (3.4-5.0) g/dL Globulin 3.5 Albumin/Globulin Ratio 0.83 [facility]on Results Last 24 Hours: Microbiology 12/19/20 12:35 Aerobic Blood Culture - Preliminary Blood - Arm, Right NO GROWTH AFTER 1 DAY Anaerobic Blood Culture - Preliminary NO GROWTH AFTER 1 DAY 12/19/20 12:30 Aerobic Blood Culture - Preliminary Blood - Arm, Left NO GROWTH AFTER 1 DAY Anaerobic Blood Culture - Preliminary NO GROWTH AFTER 1 DAY Med Orders - Current: Current Medications Dexamethasone (Dexamethasone 4 Mg/Ml Sdv) 6 mg IVPUSH DAILY [facility] Last Admin: 12/21/20 08:47 Dose: 6 mg Documented by: Enoxaparin Sodium (Enoxaparin 40 Mg/0.4 Ml Syringe) 40 mg SUBCUT BID [facility] Last Admin: 12/21/20 08:47 Dose: 40 mg Documented by: Remdesivir 100 mg/ Sodium (Chloride) 100 mls @ 100 mls/hr IV Q24H [facility] Stop: 12/23/20 18:59 Last Infusion: 12/20/20 18:40 Dose: Infused Documented by: Ibuprofen (Ibuprofen 400 Mg Tab) 400 mg PO Q6H PRN PRN Reason: Pain (mild 1-3) Last Admin: 12/20/20 21:19 Dose: 400 mg Documented by: Labetalol HCl (Labetalol 100 Mg Tab) 200 mg PO TID [facility] Last Admin: 12/21/20 08:46 Dose: 200 mg Documented by: Levothyroxine Sodium (Levothyroxine 100 Mcg Tab) 150 mcg PO ACBREAKFAST [facility] Last Admin: 12/21/20 06:18 Dose: 150 mcg Documented by: Ondansetron HCl (Ondansetron 4 Mg Tab.Dis) 4 mg PO Q4H PRN PRN Reason: nausea, able to take PO Sertraline HCl (Sertraline 50 Mg Tab) 50 mg PO DAILY [facility] Last Admin: 12/21/20 08:47 Dose: 50 mg Documented by: Discontinued Medications Enoxaparin Sodium (Enoxaparin 40 Mg/0.4 Ml Syringe) 40 mg SUBCUT DAILY [facility] Remdesivir 200 mg/ Sodium (Chloride) 250 mls @ 250 mls/hr IV ONETIME ONE Stop: 12/19/20 18:34 Last Admin: 12/19/20 18:14 Dose: 250 mls/hr Documented by: - Exam Quality Assessment: Supplemental Oxygen General: Alert, Oriented HEENT: Pupils Equal Neck: Supple Lungs: Other (distant breath sounds) Cardiovascular: Regular Rate, Regular Rhythm GI/Abdominal Exam: Normal Bowel Sounds, Soft, Non-Tender, No Distention Extremities: Normal Inspection, No Pedal Edema Skin: Warm, Dry, Intact Wound/Incisions: Healing Well Neurological: No New Focal Deficit Psy/Mental Status: Alert, Normal Affect, Normal Mood Physical Findings Comments:: morbidly obese - Patient Data Lab Results Last 24 hrs: Laboratory Results - last 24 hr 12/21/20 Range/Units 06:28 Sodium 143 (136-145) mmol/L Potassium 4.3 (3.5-5.1) mmol/L Chloride 105 (98-107) mmol/L Carbon Dioxide 27 (21-32) mmol/L Anion Gap 15.3 H (7-13) mEq/L BUN 15 (7-18) mg/dL Creatinine 0.82 (0.55-1.02) mg/dL Est Cr Clr Drug Dosing 81.11 mL/min Estimated GFR (MDRD) > 60 BUN/Creatinine Ratio 18.3 (No establ ref range) Glucose 144 H (70-99) mg/dL Calcium 8.2 L (8.5-10.1) mg/dL Total Bilirubin 0.4 (0.2-1.0) mg/dL AST 30 (15-37) U/L ALT 67 H (14-59) U/L Alkaline Phosphatase 58 (46-116) U/L Total Protein 6.4 (6.4-8.2) g/dL Albumin 2.9 L (3.4-5.0) g/dL Globulin 3.5 Albumin/Globulin Ratio 0.83 Result Diagrams: 12/19/20 12:30 12/21/20 06:28 Eldon Results Last 24 hrs: Microbiology 12/19/20 12:35 Aerobic Blood Culture - Preliminary Blood - Arm, Right NO GROWTH AFTER 1 DAY Anaerobic Blood Culture - Preliminary NO GROWTH AFTER 1 DAY 12/19/20 12:30 Aerobic Blood Culture - Preliminary Blood - Arm, Left NO GROWTH AFTER 1 DAY Anaerobic Blood Culture - Preliminary NO GROWTH AFTER 1 DAY Sepsis Event Note - Evaluation Sepsis Screening Result: No Definite Risk - Focused Exam Vital Signs: Vital Signs Temp Pulse Pulse Resp BP BP Pulse Ox 12/21/20 08:46 69 122/68 12/21/20 08:00 98.0 F 69 24 H 122/68 95 12/21/20 04:00 98.0 F 50 L 22 H 120/59 L 93 L - Problem List Review Problem List Initiated/Reviewed/Updated: Yes - My Orders Last 24 Hours: My Active Orders 12/20/20 18:00 Remdesivir 100 mg Sodium Chloride 0.9% [Normal Saline] 100 ml IV Q24H - Plan Plan:: #acute hypoxic respiratory failure 2/2 COVID19 pneumonia - c/w dexamethasone, re mdesivir, o2 supp #HT - c/w labetalol #hypothyroidism / anxiety / depression - c/w home meds PPX - bariatric dose LMWH
[2020-12-21] MEDS: REMDESIVIR 100 MG in Sodium Chloride 0.9% 100 ML IV SCH (17:14)
[2020-12-22] MEDS: Levothyroxine 100 MCG Tab PO SCH (05:51)
[2020-12-22 06:59] LABS: ANION GAP 13.5 mEq/L (7-13); CHLORIDE,CL 103 mmol/L (98-107); SODIUM,NA 141 mmol/L (136-145)
[2020-12-22] MEDS: Labetalol 100 MG Tab PO SCH ×3 (09:39→20:31)
[2020-12-22] MEDS: Sertraline 50 MG Tab PO SCH (09:39)
[2020-12-22] MEDS: Dexamethasone 4 MG/ML SDV IVPUSH SCH (09:40)
[2020-12-22] MEDS: Enoxaparin 40 MG/0.4 ML Syringe SUBCUT SCH ×2 (09:42→20:41)
[2020-12-22] MEDS: REMDESIVIR 100 MG in Sodium Chloride 0.9% 100 ML IV SCH (17:56)
[2020-12-22] MEDS: Sodium Chloride 0.9% 10 ML Syringe FLUSH PRN ×3 (19:08→19:10)
[2020-12-22] MEDS: Ibuprofen 400 MG Tab PO PRN (21:44)
--- NOTE | 2020-12-22 23:21 | PCM.PN ---
- General Info Date of Service: 12/22/20 Subjective Update: Clinically unchanged. Maintains need for 3-4L NC. Feels tired. Eating. Getting oob/chair. - Patient Data Vitals - Most Recent: Last Vital Signs Temp 96.8 F L 12/22/20 15:56 Pulse 52 L 12/22/20 20:31 Resp 22 H 12/22/20 15:56 BP 141/87 H 12/22/20 20:31 Pulse Ox 91 L 12/22/20 15:56 Weight - Most Recent: 253 lb 14.4 oz I&O - Last 24 Hours: Intake & Output 12/22/20 12/22/20 12/23/20 14:59 22:59 06:59 Intake Total 820 500 Balance 820 500 Lab Results Last 24 Hours: Laboratory Results - last 24 hr 12/22/20 Range/Units 06:23 Sodium 141 (136-145) mmol/L Potassium 4.5 (3.5-5.1) mmol/L Chloride 103 (98-107) mmol/L Carbon Dioxide 29 (21-32) mmol/L Anion Gap 13.5 H (7-13) mEq/L BUN 16 (7-18) mg/dL Creatinine 0.82 (0.55-1.02) mg/dL Est Cr Clr Drug Dosing 80.33 mL/min Estimated GFR (MDRD) > 60 BUN/Creatinine Ratio 19.5 (No establ ref range) Glucose 152 H (70-99) mg/dL Calcium 8.5 (8.5-10.1) mg/dL Total Bilirubin 0.4 (0.2-1.0) mg/dL AST 20 (15-37) U/L ALT 55 (14-59) U/L Alkaline Phosphatase 60 (46-116) U/L Total Protein 6.4 (6.4-8.2) g/dL Albumin 2.9 L (3.4-5.0) g/dL Globulin 3.5 Albumin/Globulin Ratio 0.83 [facility]on Results Last 24 Hours: Microbiology 12/19/20 12:35 Aerobic Blood Culture - Preliminary Blood - Arm, Right NO GROWTH AFTER 3 DAYS Anaerobic Blood Culture - Preliminary NO GROWTH AFTER 3 DAYS 12/19/20 12:30 Aerobic Blood Culture - Preliminary Blood - Arm, Left NO GROWTH AFTER 3 DAYS Anaerobic Blood Culture - Preliminary NO GROWTH AFTER 3 DAYS Med Orders - Current: Current Medications Dexamethasone (Dexamethasone 4 Mg/Ml Sdv) 6 mg IVPUSH DAILY [facility] Last Admin: 12/22/20 09:40 Dose: 6 mg Documented by: Enoxaparin Sodium (Enoxaparin 40 Mg/0.4 Ml Syringe) 40 mg SUBCUT BID [facility] Last Admin: 12/22/20 20:41 Dose: 40 mg Documented by: Remdesivir 100 mg/ Sodium (Chloride) 100 mls @ 100 mls/hr IV Q24H [facility] Stop: 12/23/20 18:59 Last Infusion: 12/22/20 19:08 Dose: Infused Documented by: Ibuprofen (Ibuprofen 400 Mg Tab) 400 mg PO Q6H PRN PRN Reason: Pain (mild 1-3) Last Admin: 12/22/20 21:44 Dose: 400 mg Documented by: Labetalol HCl (Labetalol 100 Mg Tab) 200 mg PO TID [facility] Last Admin: 12/22/20 20:31 Dose: 200 mg Documented by: Levothyroxine Sodium (Levothyroxine 100 Mcg Tab) 150 mcg PO ACBREAKFAST [facility] Last Admin: 12/22/20 05:51 Dose: 150 mcg Documented by: Ondansetron HCl (Ondansetron 4 Mg Tab.Dis) 4 mg PO Q4H PRN PRN Reason: nausea, able to take PO Sertraline HCl (Sertraline 50 Mg Tab) 50 mg PO DAILY [facility] Last Admin: 12/22/20 09:39 Dose: 50 mg Documented by: Sodium Chloride (Sodium Chloride 0.9% 10 Ml Syringe) 10 ml FLUSH ASDIRECTED PRN PRN Reason: IV Use Discontinued Medications Enoxaparin Sodium (Enoxaparin 40 Mg/0.4 Ml Syringe) 40 mg SUBCUT DAILY [facility] Remdesivir 200 mg/ Sodium (Chloride) 250 mls @ 250 mls/hr IV ONETIME ONE Stop: 12/19/20 18:34 Last Admin: 12/19/20 18:14 Dose: 250 mls/hr Documented by: - Exam Quality Assessment: Supplemental Oxygen General: Alert, Oriented Physical Findings Comments:: further exam deferred 09/02 COVID19 - Patient Data Lab Results Last 24 hrs: Laboratory Results - last 24 hr 12/22/20 Range/Units 06:23 Sodium 141 (136-145) mmol/L Potassium 4.5 (3.5-5.1) mmol/L Chloride 103 (98-107) mmol/L Carbon Dioxide 29 (21-32) mmol/L Anion Gap 13.5 H (7-13) mEq/L BUN 16 (7-18) mg/dL Creatinine 0.82 (0.55-1.02) mg/dL Est Cr Clr Drug Dosing 80.33 mL/min Estimated GFR (MDRD) > 60 BUN/Creatinine Ratio 19.5 (No establ ref range) Glucose 152 H (70-99) mg/dL Calcium 8.5 (8.5-10.1) mg/dL Total Bilirubin 0.4 (0.2-1.0) mg/dL AST 20 (15-37) U/L ALT 55 (14-59) U/L Alkaline Phosphatase 60 (46-116) U/L Total Protein 6.4 (6.4-8.2) g/dL Albumin 2.9 L (3.4-5.0) g/dL Globulin 3.5 Albumin/Globulin Ratio 0.83 Result Diagrams: 12/19/20 12:30 12/22/20 06:23 [place]on Results Last 24 hrs: Microbiology 12/19/20 12:35 Aerobic Blood Culture - Preliminary Blood - Arm, Right NO GROWTH AFTER 3 DAYS Anaerobic Blood Culture - Preliminary NO GROWTH AFTER 3 DAYS 12/19/20 12:30 Aerobic Blood Culture - Preliminary Blood - Arm, Left NO GROWTH AFTER 3 DAYS Anaerobic Blood Culture - Preliminary NO GROWTH AFTER 3 DAYS Sepsis Event Note - Evaluation Sepsis Screening Result: No Definite Risk - Focused Exam Vital Signs: Vital Signs Temp Pulse Pulse Resp BP BP Pulse Ox 12/22/20 20:31 52 L 141/87 H 12/22/20 15:56 96.8 F L 53 L 22 H 130/60 91 L 12/22/20 14:23 55 L 118/61 12/22/20 12:00 97.8 F 64 21 H 122/71 93 L - Problem List Review Problem List Initiated/Reviewed/Updated: Yes - My Orders Last 24 Hours: My Active Orders 12/22/20 22:49 Sodium Chloride 0.9% [Saline Flush] 10 ml FLUSH ASDIRECTED PRN - Plan Plan:: #acute hypoxic respiratory failure 2/2 COVID19 pneumonia - c/w dexamethasone, remdesivir, o2 supp #HT - c/w labetalol #hypothyroidism / anxiety / depression - c/w home meds PPX - bariatric dose LMWH
[2020-12-23] MEDS: Levothyroxine 100 MCG Tab PO SCH (05:22)
[2020-12-23] MEDS: Labetalol 100 MG Tab PO SCH (08:00)
[2020-12-23] MEDS: Sertraline 50 MG Tab PO SCH (08:01)
[2020-12-23] MEDS: Dexamethasone 4 MG/ML SDV IVPUSH SCH (08:01)
[2020-12-23] MEDS: Enoxaparin 40 MG/0.4 ML Syringe SUBCUT SCH (08:08)
[2020-12-23] MEDS ORDERED: REMDESIVIR 100 MG in Sodium Chloride 0.9% 100 ML IV SCH (11:00)
--- NOTE | 2020-12-23 11:56 | PCM.DCSUM1 ---
Discharge Summary - Hospital Course HPI Initial Comments: 39F w/ pmh morbid obesity, gestational DM, HT, hypothyroidism, anxiety, depression p/w shortness of breath. Pt developed symptoms appx 7 days ago. She is coughing, nauseated, short of breath and suffers body aches, fevers and diarrhea. There are multiple family members who are similarly sick. Pt has not been vaccinated against COVID19 nor has any of the family. ER evaluation reveals patchy lung infiltrates. She is COVID19 positive. In the ER pt desaturated to 88% on room air. The hospital stay was uncomplicated. Pt was treated w/ remdesivir and dexamethasone. Upon discharge she still requires 3L NC at rest and 5L NC w/ ambulation. She is otherwise well appearing and feels better. She was d/c home w/ family all of whom are sick as well but did not require hospitalization. Diagnosis: Stroke: No - Discharge Data Discharge Date: 12/23/20 Discharge Disposition: Home, Self-Care 01 Condition: Good - Referral to Home Health Primary Care Physician: Aurelia Robins NP - Discharge Plan *PRESCRIPTION DRUG MONITORING PROGRAM REVIEWED*: No *COPY OF PRESCRIPTION DRUG MONITORING REPORT IN PATIENT [place]: No Home Medications: Home Meds Labetalol HCl [Labetalol] 200 mg PO TID 11/05/15 [History] Levothyroxine [Synthroid] 150 mcg PO ACBREAKFAST 11/05/15 [History] Ascorbic Acid [Vitamin C] 500 mg PO DAILY 12/19/20 [History] Cholecalciferol (Vitamin D3) [Vitamin D3] 2,000 unit PO DAILY 12/19/20 [History] Sertraline [Zoloft] 50 mg PO DAILY 12/19/20 [History] Patient Handouts: 10 Things You Can Do to Manage Your COVID-19 Symptoms at Home - CDC, COVID-19: Quarantine vs. Isolation - CDC, Prevent the Spread of COVID-19 if You Are Sick - [facility] [place] Referrals: Aurelia Robins [employer] [Primary Care Provider] - - Discharge Summary/Plan Comment DC Time >30 min.: Yes (35 min) - Patient Data Vitals - Most Recent: Last Vital Signs Temp 97.3 F 12/23/20 08:00 Pulse 69 12/23/20 08:00 Resp 20 12/23/20 08:00 BP 124/82 05/25/21 08:00 Pulse Ox 90 L 12/23/20 08:00 Weight - Most Recent: 253 lb 14.4 oz I&O - Last 24 hours: Intake & Output 12/22/20 12/23/20 12/23/20 22:59 06:59 14:59 Intake Total 600 100 500 Balance 600 100 500 GAYLA Results - Last 24 hrs: Microbiology 12/19/20 12:35 Aerobic Blood Culture - Preliminary Blood - Arm, Right NO GROWTH AFTER 3 DAYS Anaerobic Blood Culture - Preliminary NO GROWTH AFTER 3 DAYS 12/19/20 12:30 Aerobic Blood Culture - Preliminary Blood - Arm, Left NO GROWTH AFTER 3 DAYS Anaerobic Blood Culture - Preliminary NO GROWTH AFTER 3 DAYS Med Orders - Current: Current Medications Dexamethasone (Dexamethasone 4 Mg/Ml Sdv) 6 mg IVPUSH DAILY [facility] Last Admin: 12/23/20 08:01 Dose: 6 mg Documented by: Enoxaparin Sodium (Enoxaparin 40 Mg/0.4 Ml Syringe) 40 mg SUBCUT BID [facility] Last Admin: 12/23/20 08:08 Dose: 40 mg Documented by: Remdesivir 100 mg/ Sodium (Chloride) 100 mls @ 100 mls/hr IV Q24H [facility] Stop: 12/23/20 11:59 Last Admin: 12/23/20 11:09 Dose: 100 mls/hr Documented by: Ibuprofen (Ibuprofen 400 Mg Tab) 400 mg PO Q6H PRN PRN Reason: Pain (mild 1-3) Last Admin: 12/22/20 21:44 Dose: 400 mg Documented by: Labetalol HCl (Labetalol 100 Mg Tab) 200 mg PO TID [facility] Last Admin: 12/23/20 08:00 Dose: 200 mg Documented by: Levothyroxine Sodium (Levothyroxine 100 Mcg Tab) 150 mcg PO ACBREAKFAST [facility] Last Admin: 12/23/20 05:22 Dose: 150 mcg Documented by: Ondansetron HCl (Ondansetron 4 Mg Tab.Dis) 4 mg PO Q4H PRN PRN Reason: nausea, able to take PO Sertraline HCl (Sertraline 50 Mg Tab) 50 mg PO DAILY [facility] Last Admin: 12/23/20 08:01 Dose: 50 mg Documented by: Sodium Chloride (Sodium Chloride 0.9% 10 Ml Syringe) 10 ml FLUSH ASDIRECTED PRN PRN Reason: IV Use Last Admin: 12/22/20 19:10 Dose: 10 ml Documented by: Discontinued Medications Enoxaparin Sodium (Enoxaparin 40 Mg/0.4 Ml Syringe) 40 mg SUBCUT DAILY [facility] Remdesivir 200 mg/ Sodium (Chloride) 250 mls @ 250 mls/hr IV ONETIME ONE Stop: 12/19/20 18:34 Last Admin: 12/19/20 18:14 Dose: 250 mls/hr Documented by: Remdesivir 100 mg/ Sodium (Chloride) 100 mls @ 100 mls/hr IV Q24H [facility] Stop: 12/23/20 18:59 Last Infusion: 12/22/20 19:08 Dose: Infused Documented by: - Exam Quality Assessment: Reports: Supplemental Oxygen General: Reports: Alert, Oriented GI/Abdominal Exam: Soft, Non-Tender, No Distention Extremities: No Pedal Edema Skin: Reports: Warm, Dry Physical Findings Comments:: Further exam deferred / COVID19
[2020-12-23 14:18] VITALS: BP 126/80; PULSE 66
== END 2020-12-23 13:38 | disposition home or self-care (01) | DRG 177 ==
LOC: DL.ED 10:25 → DL.MS 15:17 → DL.ED 15:30
PROVIDERS: ADMIT Internal Medicine; ATTEND Internal Medicine
PROC: XW033E5 Introduction of Remdesivir Anti-infective into Peripheral Vein, Percutaneous Approach, New Technology Group 5 (ICD-10-PCS; principal; 2020-12-19)
DX: U07.1 COVID-19 (principal); R09.02 Hypoxemia; J96.01 Acute respiratory failure with hypoxia; J12.82 Pneumonia due to coronavirus disease 2019; Z68.41 Body mass index [BMI] 40.0-44.9, adult; E66.01 Morbid (severe) obesity due to excess calories; E03.9 Hypothyroidism, unspecified; E11.9 Type 2 diabetes mellitus without complications; I10 Essential (primary) hypertension; F32.9 Major depressive disorder, single episode, unspecified; F41.9 Anxiety disorder, unspecified; J45.909 Unspecified asthma, uncomplicated; K21.9 Gastro-esophageal reflux disease without esophagitis; Z91.040 Latex allergy status; Z79.890 Hormone replacement therapy; Z79.52 Long term (current) use of systemic steroids; Z79.899 Other long term (current) drug therapy; Z98.890 Other specified postprocedural states; Z28.82 Immunization not carried out because of caregiver refusal
CPT/HCPCS: 0240U; 36415; 71045; 80053; 81001; 81025; 84484; 85025; 85379; 87040; 93005; 99284; 99285-25; A9270-GY; J1100; J1650; J7050